=== PATIENT | female | born 1990 | race African-American/Black ===

== ENCOUNTER → 2017-07-13 | Outpatient (CLI) | payer MEDICAID ==
--- NOTE | 2017-07-13 16:42 | RADIOLOGY REPORT (SQ) ---
EXAM DESCRIPTION: CHEST PA/LATERAL COMPLETED DATE/TIME: 07/13/2017 4:33 pm REASON FOR STUDY: ACUTE UPPER RESPIRATORY INFECTION, UNSPECIFIED COMPARISON: None. EXAM PARAMETERS: NUMBER OF VIEWS: two views TECHNIQUE: Digital Frontal and Lateral radiographic views of the chest acquired. RADIATION DOSE: NA LIMITATIONS: none FINDINGS: LUNGS AND PLEURA: No opacities, masses or pneumothorax. No pleural effusion. MEDIASTINUM AND HILAR STRUCTURES: No masses or contour abnormalities. HEART AND VASCULAR STRUCTURES: Heart normal size. No evidence for failure. BONES: No acute findings. HARDWARE: None in the chest. OTHER: No other significant finding. IMPRESSION: NO SIGNIFICANT RADIOGRAPHIC FINDING IN THE CHEST. TECHNICAL DOCUMENTATION: JOB ID: [id number] [employer]- All Rights Reserved Reading location - IP/workstation name: [email or web address]
== END ==
LOC: OD 15:52
PROVIDERS: ATTEND Nurse Practitioner Acute Care
DX: J06.9 Acute upper respiratory infection, unspecified (principal)
CPT/HCPCS: 71046

== ENCOUNTER 2017-11-30 13:09 | Emergency (ER) | payer MEDICAID ==
--- NOTE | 2017-11-30 16:06 | ER Document Report ---
ED Medical Screen (RME) - General Chief Complaint: Vag Bleeding, +preg <12wks Stated Complaint: ABDOMINAL PAIN Time Seen by Provider: 11/30/17 15:50 Mode of Arrival: Ambulatory Information source: Patient TRAVEL OUTSIDE OF THE [place].S. IN LAST 30 DAYS: No - HPI Notes: 11/30/17 16:03 27-year-old female 2 para 1 6 week 3 day presents to the ED today for complaints of intermittent abdominal pain with vaginal bleeding for the last 2 weeks, states pain became progressively worse last night along with bleeding after sexual intercourse. Patient did have a positive test at home, with disc as confirmed that her doctor's office [facility]. Last menstrual period was 10/16/2017. Has not tried any thid-xus-bjuwqfy medications. Denies fevers, chills, chest pain,palpitations, shortness of breath, dyspnea, nausea , vomiting, diarrhea, speech changes, LH, dizziness, syncope, headaches, weakness, bowel or bladder dysfunction or saddle anesthesia suprapubic abd pain s1 s2 regular lungs cta I have greeted and performed a rapid initial assessment of this patient. A comprehensive ED assessment and evaluation of the patient, analysis of test results and completion of medical decision making process will be conducted by an additional ED providers - Related Data Allergies/Adverse Reactions: No Known Allergies Allergy (Verified 11/30/17 15:51) Physical Exam - Vital signs Vitals: Temp Pulse Resp BP Pulse Ox 98.5 F 81 20 116/66 99 11/30/17 14:04 11/30/17 14:04 11/30/17 14:04 11/30/17 14:04 11/30/17 14:04 Course - Vital Signs Vital signs: Temp Pulse Resp BP Pulse Ox 98.5 F 81 20 116/66 99 11/30/17 14:04 11/30/17 14:04 11/30/17 14:04 11/30/17 14:04 11/30/17 14:04
[2017-11-30 17:19] LABS: ABSOLUTE LYMPHOCYTES (AUTO) 1.9 10^3/uL (0.5-4.7); ABSOLUTE MONOCYTES (AUTO) 0.6 10^3/uL (0.1-1.4); ABSOLUTE NEUT (AUTO) 6.2 10^3/uL (1.7-8.2); BASOPHILS % (AUTO) 0.4 % (0-2); EOSINOPHILS % (AUTO) 0.6 % (0-6); HEMATOCRIT 37.8 % (36.0-47.0); HEMOGLOBIN 12.5 g/dL (12.0-15.5); LYMPHOCYTES % (AUTO) 21.7 % (13-45); MEAN CORPUSCULAR HGB CONC 32.9 g/dL (32.0-36.0); MEAN CORPUSCULAR VOLUME 82 fl (80-97); MONOCYTES % (AUTO) 6.3 % (3-13); PLATELET COUNT 296 10^3/uL (150-450); RED BLOOD COUNT 4.61 10^6/uL (3.72-5.28); RED CELL DISTRIBUTION WIDTH 13.8 % (11.5-14.0); TOTAL CELLS COUNTED % (AUTO) 100 %; WHITE BLOOD COUNT 8.7 10^3/uL (4.0-10.5)
[2017-11-30 17:23] LABS: APPEARANCE,URINE CLOUDY; BILIRUBIN,URINE NEGATIVE (NEGATIVE); GLUCOSE, URINE NEGATIVE (NEGATIVE); KETONES,URINE NEGATIVE (NEGATIVE); LEUKOCYTE ESTERASE,URINE LARGE (NEGATIVE); NITRITE,URINE NEGATIVE (NEGATIVE); PROTEIN,URINE 100 mg/dL (NEGATIVE); URINE SPECIFIC GRAVITY 1.031
[2017-11-30 17:24] LABS: COLOR,URINE YELLOW
[2017-11-30 17:33] LABS: ALANINE AMINOTRANSFERASE 22 U/L (9-52); ALBUMIN 4.5 g/dL (3.5-5.0); ALKALINE PHOSPHATASE 62 U/L (38-126); ANION GAP 11 (5-19); ASPARTATE AMINO TRANSFERASE 17 U/L (14-36); BILIRUBIN,DIRECT 0.2 mg/dL (0.0-0.4); BILIRUBIN,TOTAL 0.5 mg/dL (0.2-1.3); BLOOD UREA NITROGEN 12 mg/dL (7-20); CALCIUM 9.5 mg/dL (8.4-10.2); CARBON DIOXIDE 26 mmol/L (22-30); CHLORIDE 105 mmol/L (98-107); GLUCOSE 93 mg/dL (75-110); POTASSIUM 4.1 mmol/L (3.6-5.0); SODIUM 141.8 mmol/L (137-145); TOTAL PROTEIN 7.8 g/dL (6.3-8.2)
--- NOTE | 2017-11-30 18:07 | RADIOLOGY REPORT (SQ) ---
EXAM DESCRIPTION: U/S OB TRANSVAG W/DOPPLER COMPLETED DATE/TIME: 11/30/2017 5:42 pm REASON FOR STUDY: vaginal bleeding/cramping. 6 weeks preg COMPARISON: None. TECHNIQUE: Transvaginal static and realtime grayscale images acquired of the pelvis. Additional cathy cted spectral and color Doppler images recorded. All images stored on PACs. bHCG: Pending. CLINICAL DATES: 6 weeks 3 days LIMITATIONS: None. FINDINGS: Possible Gestational sac identified in the lower uterine segment. No yolk sac or po le identified at this time. ULTRASOUND EGA: 5 weeks 4 days ULTRASOUND KATIE: 07/29/2018 SUBCHORIONIC BLEED: No. SIZE OF BLEED: Not applicable. UTERUS: No masses. No anomalies. CERVICAL LENGTH: 3.5 cm Closed. RIGHT ADNEXA: Normal ovary with normal vascular flow. No adnexal free fluid. No adnexal masses. LEFT ADNEXA: Ovary not identified. No adnexal free fluid. No adnexal masses. FREE FLUID: None. OTHER: No other significant finding. IMPRESSION: Possible Gestational sac identified in the lower uterine segment. No yolk sac or p ole identified at this time. ULTRASOUND EGA: 5 weeks 4 days No adnexal masses or free fluid. Left ovary not identified. Trimester of : First - 0 to 13 weeks. TECHNICAL DOCUMENTATION: JOB ID: [id number] 2010 [employer]- All Rights Reserved Reading location - IP/workstation name: [employer]
--- NOTE | 2017-11-30 19:26 | ER Document Report ---
ED General - General Mode of Arrival: Ambulatory Information source: Patient TRAVEL OUTSIDE OF THE U.S. IN LAST 30 DAYS: No <MANDA HEATON - Last Filed: 12/01/17 04:07> <STEPHEN CEVALLOS - Last Filed: 12/01/17 04:09> - General Chief Complaint: Vag Bleeding, +preg <12wks Stated Complaint: ABDOMINAL PAIN Time Seen by Provider: 11/30/17 15:50 Notes: 27 y.o female presents to the ED with vaginal bleeding of onset 2 weeks ago which she describes as a spotting that is worsened after intercourse. She also reports that she has had some abd cramping since her onset of spotting and states that this is more cramping than she usually has during her periods because she usually does not has much cramping during her periods. She denies any fevers. She reports that she is and believes that she is 6 weeks and 3 days into her . Pt reports that this is her second , A0. ( MANDA HEATON) - Related Data Allergies/Adverse Reactions: No Known Allergies Allergy (Verified 11/30/17 15:51) Past Medical History - General Information source: Patient Last Menstrual Period: 10/16 - Social History Smoking Status: Never Smoker Chew tobacco use (# tins/day): No Frequency of alcohol use: None Drug Abuse: None Patient has suicidal ideation: No Patient has homicidal ideation: No Neurological Medical History: Reports: Hx Migraine Renal/ Medical History: Denies: Hx Peritoneal Dialysis <MANDA HEATON - Last Filed: 12/01/17 04:07> - Social History Family History: None <STEPHEN CEVALLOS - Last Filed: 12/01/17 04:09> Review of Systems - Review of Systems Constitutional: See HPI. denies: Fever EENT: No symptoms reported Cardiovascular: No symptoms reported Respiratory: No symptoms reported Gastrointestinal: See HPI, Abdominal pain - cramping Genitourinary: No symptoms reported Female Genitourinary: See HPI, , Vaginal bleeding Musculoskeletal: No symptoms reported Skin: No symptoms reported Hematologic/Lymphatic: No symptoms reported Neurological/Psychological: No symptoms reported -: Yes All other systems reviewed and negative <MANDA HEATON - Last Filed: 12/01/17 04:07> Physical Exam <MANDA HEATON - Last Filed: 12/01/17 04:07> <STEPHEN CEVALLOS - Last Filed: 12/01/17 04:09> - Vital signs Vitals: Temp Pulse Resp BP Pulse Ox 98.5 F 81 20 116/66 99 11/30/17 14:04 11/30/17 14:04 11/30/17 14:04 11/30/17 14:04 11/30/17 14:04 - Notes Notes: PHYSICAL EXAM GENERAL: Alert, interacts well. No acute distress. HEAD: Normocephalic, atraumatic. EYES: Pupils equal, round, and reactive to light. Extraocular movements intact. ENT: Oral mucosa moist, tongue midline. NECK: Full range of motion. Supple. Trachea midline. LUNGS: Clear to auscultation bilaterally, no wheezes, rales, or rhonchi. No respiratory distress. HEART: Regular rate and rhythm. No murmurs, gallops, or rubs. ABDOMEN: Soft, non-tender. Non-distended. Bowel sounds present in all 4 quadrants. No guarding, rebound, or rigidity. EXTREMITIES: Moves all 4 extremities spontaneously. No edema. No cyanosis. NEUROLOGICAL: Alert and oriented x3. Normal speech. PSYCH: Normal affect, normal mood. SKIN: Warm, dry, normal turgor. No rashes or lesions noted. (MANDA HEATON) Course - Laboratory Result Diagrams: 11/30/17 16:56 11/30/17 16:56 <MANDA HEATON - Last Filed: 12/01/17 04:07> - Laboratory Result Diagrams: 11/30/17 16:56 11/30/17 16:56 <STEPHEN CEVALLOS - Last Filed: 12/01/17 04:09> - Re-evaluation Re-evalutation: 11/30/17 19:33 CBC unremarkable, CMP unremarkable, quantitative beta-hCG is 590.59, she is B+ so RhoGam is not indicated, urinalysis shows large blood and large leukocyte esterase, 1 squamous epithelial cell, suspect this is contaminated from her vaginal bleeding, doubt true urinary tract infection however I will treat with Macrobid given her lower abdominal pain. Transvaginal ultrasound shows possible gestational sac at the lower uterine segment but no evidence of yolk sac or pole. Estimated gestational age is 5 weeks 4 days compared to clinical date based off of last menstrual period which is 6 weeks 3 days. I did discuss with the patient that based of these findings is quite likely that she is having a miscarriage. Patient will have to have her hCG rechecked in approximately 2 days. I have written her a prescription for a lab order. Her results will be called to her at the latest on Monday by Malinda Ruiz our culture nurse. 11/30/17 21:09 I forgot to include the prescription for Macrobid on her discharge instructions. I attempted to call the phone number left in the computer for this patient but she did not answer. I left a message asking her to call by back at [phone]. We do not have a pharmacy on record for her. I am awaiting a phone call back from her. 12/01/17 04:08 Patient did call me back, I called in a prescription for Macrobid to the pharmacy of her choice in [place]. This was [facility]. (STEPHEN CEVALLOS) - Vital Signs Vital signs: Temp Pulse Resp BP Pulse Ox 98.1 F 81 16 115/72 99 11/30/17 19:37 11/30/17 14:04 11/30/17 19:37 11/30/17 19:37 11/30/17 14:04 - Laboratory Laboratory results interpreted by me: 11/30/17 11/30/17 16:15 16:56 Beta HCG, Quant 590.59 H Urine Protein 100 H Urine Blood LARGE H Urine Urobilinogen 4.0 H Ur Leukocyte Esterase LARGE H Urine Ascorbic Acid 40 H Discharge <MANDA HEATON - Last Filed: 12/01/17 04:07> <STEPHEN CEVALLOS - Last Filed: 12/01/17 04:09> - Discharge Clinical Impression: Hemorrhage of in first trimester, Miscarriage, threatened, early UTI (urinary tract infection) Qualifiers: Urinary tract infection type: acute cystitis Hematuria presence: with hematuria Qualified Code(s): N30.01 - Acute cystitis with hematuria Condition: Stable Disposition: HOME, SELF-CARE Instructions: Threatened Miscarriage ([facility]) Additional Instructions: Please have your quantitative beta-hCG rechecked in 2 days. We will call you the results at latest on Monday. Return for fevers, foul-smelling vaginal discharge, lightheadedness or any new or concerning symptoms. Do not have sex or put anything in your vagina until your EQUIPMENT ANALYST says it is safe. Prescriptions: Nitrofurantoin/Nitrofuran Mac [Macrobid 100 mg Capsule] 1 tab PO BID #14 capsule Forms: Follow-Up Laboratory Testing Referrals: MARIA DOLORES GARCIA MD [Primary Care Provider] - Follow up as needed Scribe Attestation: 12/01/17 04:09 I personally performed the services described in the documentation, reviewed and edited the documentation which was dictated to the scribe in my presence, and it accurately records my words and actions. (STEPHEN CEVALLOS) Scribe Documentation - Scribe Written by Sulma:: Sulma Dejesus 11/30/171925 acting as scribe for :: Miley <MANDA HEATON - Last Filed: 12/01/17 04:07>
[2017-11-30 19:43] VITALS: BP 115/72
== END 2017-11-30 19:44 | disposition home or self-care (01) ==
LOC: ER 13:09
DX: O20.0 Threatened abortion (principal); O23.41 Unspecified infection of urinary tract in pregnancy, first trimester; Z3A.01 Less than 8 weeks gestation of pregnancy
CPT/HCPCS: 36415; 76817; 80053; 81001; 84702; 85025; 86900; 86901; 93976; 99284

== ENCOUNTER → 2017-12-03 | Outpatient (CLI) | payer MEDICAID | LOC: LAB 14:25 | PROVIDERS: ATTEND Emergency Medicine | DX: O20.9 Hemorrhage in early pregnancy, unspecified (principal); Z3A.00 Weeks of gestation of pregnancy not specified | CPT/HCPCS: 36415; 84702 ==

== ENCOUNTER → 2018-03-10 | Outpatient (CLI) | payer MEDICAID ==
[2018-03-10 12:55] LABS: ANION GAP 14 (5-19); BLOOD UREA NITROGEN 11 mg/dL (7-20); CALCIUM 9.6 mg/dL (8.4-10.2); CARBON DIOXIDE 27 mmol/L (22-30); CHLORIDE 101 mmol/L (98-107); GLUCOSE 82 mg/dL (75-110); POTASSIUM 4.6 mmol/L (3.6-5.0); SODIUM 141.5 mmol/L (137-145)
== END ==
LOC: OD 10:43
PROVIDERS: ATTEND Internal Medicine Cardiovascular Disease
DX: R00.2 Palpitations (principal); R07.9 Chest pain, unspecified; N91.2 Amenorrhea, unspecified
CPT/HCPCS: 36415; 80048; 84443; 84703

== ENCOUNTER 2018-09-10 08:16 | Emergency (ER) | payer OTHER, MEDICAID ==
--- NOTE | 2018-09-10 09:20 | ER Document Report ---
ED General - General Chief Complaint: Medical Clearance Stated Complaint: CONFIRMATION Time Seen by Provider: 09/10/18 09:09 Primary Care Provider: CELE PARKER MD [Primary Care Provider] - Follow up as needed Mode of Arrival: Ambulatory Information source: Patient Notes: Patient presents to the emergency patient presents to the emergency department with reports of positive test x2 with lower abdominal cramping and light spotting that started yesterday. She reports last menstrual period August 09, 2018. Reports 2 miscarriages. G3, P1. Complains of some some light cramping today reports she just went to the bathroom and she did not notice any bleeding now. Denies trauma. Denies all other symptoms such as fever vomiting diarrhea. Denies pain with void. denies vag discharge. TRAVEL OUTSIDE OF THE U.S. IN LAST 30 DAYS: No - HPI Onset: Yesterday Quality of pain: Cramping Severity: Mild Pain Level: 1 Associated symptoms: None Exacerbated by: Denies Relieved by: Denies Similar symptoms previously: Yes Recently seen / treated by doctor: No - Related Data Allergies/Adverse Reactions: No Known Allergies Allergy (Verified 11/30/17 15:51) Past Medical History - General Information source: Patient - Social History Smoking Status: Unknown if Ever Smoked Cigarette use (# per day): No Frequency of alcohol use: None Drug Abuse: None Occupation: pre algebra teacher Lives with: Family Family History: None Patient has suicidal ideation: No Patient has homicidal ideation: No Neurological Medical History: Reports: Hx Migraine Renal/ Medical History: Denies: Hx Peritoneal Dialysis Review of Systems - Review of Systems Notes: Review HPI for review of systems., All other systems negative Physical Exam - Vital signs Vitals: Temp Pulse Resp BP Pulse Ox 97.3 F 90 16 111/68 100 09/10/18 08:22 09/10/18 08:22 09/10/18 08:22 09/10/18 08:22 09/10/18 08:22 - Notes Notes: PHYSICAL EXAMINATION: GENERAL: Well-appearing and in no acute distress HEAD: Atraumatic, normocephalic. EYES: Pupils equal round extraocular movements intact, sclera anicteric, conjunctiva are normal. ENT: nares patent, b. Moist mucous membranes. NECK: Normal range of motion, supple without lymphadenopathy LUNGS: CTAB and equal. No wheezes rales or rhonchi. HEART: Regular rate and rhythm without murmurs ABDOMEN: Soft, some generalized tenderness to palpation. No guarding, no rebound EXTREMITIES: Normal range of motion, NEUROLOGICAL: Cranial nerves grossly intact. Normal sensory/motor exams. PSYCH: Normal mood, normal affect. SKIN: Warm, Dry, normal turgor, Course - Re-evaluation Re-evalutation: 09/10/18 11:10 Patient waiting in room 31. Chemistry still pending ultrasound report still pending. 09/10/18 12:22 Patient instructed on ultrasound and hCG level. Instructed on the importance of follow-up Monday for recheck of hCG. She was also instructed on the need for repeat ultrasound. She verbalized understanding to all instructions. - Vital Signs Vital signs: Temp Pulse Resp BP Pulse Ox 97.7 F 80 18 108/74 100 09/10/18 11:51 09/10/18 11:51 09/10/18 11:51 09/10/18 11:51 09/10/18 11:51 - Laboratory Result Diagrams: 09/10/18 09:20 09/10/18 09:20 Laboratory results interpreted by me: 09/10/18 09/10/18 09/10/18 09:20 09:20 09:20 Hgb 11.5 L Hct 35.2 L Beta HCG, Quant 722.37 H Urine Blood MODERATE H Ur Leukocyte Esterase MODERATE H - Diagnostic Test Radiology reviewed: Image reviewed, Reports reviewed - no iup visualized at this time EXAM DESCRIPTION: U/S [id number] TRNABD 1GES W/ODOP COMPLETED DATE/TIME: 09/10/2018 11:00 am REASON FOR STUDY: preg, spotting COMPARISON: None. TECHNIQUE: Transabdominal static and realtime grayscale images acquired of the pelvis. Additional selected spectral and color Doppler images recorded. All images stored on PACs. [facility]: Not available. CLINICAL DATES: LMP 08/09/2018. 4 weeks 4 days. LIMITATIONS: None. FINDINGS: No intrauterine gestation is present. The endometrium measures 18 mm. UTERUS: No masses or anomalies. 9.7 x 5 x 4.4 cm. CERVICAL LENGTH: 2.1 cm. Closed. RIGHT ADNEXA: Normal ovary with normal vascular flow. 3.2 x 2.2 x 1.8 cm. No adnexal free fluid. No adnexal masses. LEFT ADNEXA: Normal ovary with normal vascular flow. 3.7 x 3.2 x 3.1 cm. There is a 2.8 x 2.9 x 2.5 cm cyst. No adnexal free fluid. No adnexal masses. FREE FLUID: None. OTHER: No other significant finding. IMPRESSION: No intrauterine gestation is identified at this time. The endometrium is prominent. There is a left ovarian cyst. Follow-up as clinically indicated. Discharge - Discharge Clinical Impression: Vaginal bleeding Qualifiers: Weeks of gestation: less than 8 weeks Qualified Code(s): Z3A.01 - Less than 8 weeks gestation of Condition: Stable Disposition: HOME, SELF-CARE Instructions: Bleeding During Early ([facility]), Ob-Activity Aide Doctors, ([facility]) Additional Instructions: *You have been evaluated for vaginal bleeding, *A was not visualized on this ultrasound. Please follow-up in 72 hours for a repeat hCG. You may contact the [facility] nurse at [phone] for results between the hours of 8-4 Monday through Monday. (your hcg level today is 722.37) *Follow up with your TILE CONDUIT LAYER or the health department for evaluation and care *Return to ED for worsening condition, changes, needs Forms: Follow-Up Laboratory Testing, Parent Work Note, Return to Work Referrals: CELE PARKER MD [Primary Care Provider] - Follow up as needed
[2018-09-10 09:31] LABS: ABSOLUTE MONOCYTES (AUTO) 0.5 10^3/uL (0.1-1.4); BASOPHILS % (AUTO) 0.4 % (0-2); EOSINOPHILS % (AUTO) 0.3 % (0-6); HEMATOCRIT 35.2 % (36.0-47.0); HEMOGLOBIN 11.5 g/dL (12.0-15.5); LYMPHOCYTES % (AUTO) 23.1 % (13-45); MEAN CORPUSCULAR HGB CONC 32.7 g/dL (32.0-36.0); MEAN CORPUSCULAR VOLUME 82 fl (80-97); MONOCYTES % (AUTO) 5.7 % (3-13); PLATELET COUNT 250 10^3/uL (150-450); RED BLOOD COUNT 4.27 10^6/uL (3.72-5.28); RED CELL DISTRIBUTION WIDTH 13.4 % (11.5-14.0); SEGMENTED NEUTROPHILS % (AUTO) 70.5 % (42-78); TOTAL CELLS COUNTED % (AUTO) 100 %; WHITE BLOOD COUNT 8.5 10^3/uL (4.0-10.5)
[2018-09-10 09:36] LABS: APPEARANCE,URINE CLEAR; BILIRUBIN,URINE NEGATIVE (NEGATIVE); COLOR,URINE YELLOW; GLUCOSE, URINE NEGATIVE (NEGATIVE); KETONES,URINE NEGATIVE (NEGATIVE); LEUKOCYTE ESTERASE,URINE MODERATE (NEGATIVE); NITRITE,URINE NEGATIVE (NEGATIVE); PROTEIN,URINE NEGATIVE (NEGATIVE); URINE SPECIFIC GRAVITY 1.015; UROBILINOGEN,URINE NEGATIVE mg/dL (<2.0)
[2018-09-10 11:08] LABS: ALANINE AMINOTRANSFERASE 20 U/L (9-52); ALBUMIN 3.9 g/dL (3.5-5.0); ALKALINE PHOSPHATASE 59 U/L (38-126); ANION GAP 9 (5-19); ASPARTATE AMINO TRANSFERASE 19 U/L (14-36); BILIRUBIN,DIRECT 0.3 mg/dL (0.0-0.4); BILIRUBIN,TOTAL 0.5 mg/dL (0.2-1.3); BLOOD UREA NITROGEN 11 mg/dL (7-20); CALCIUM 9.2 mg/dL (8.4-10.2); CARBON DIOXIDE 27 mmol/L (22-30); CHLORIDE 103 mmol/L (98-107); GLUCOSE 96 mg/dL (75-110); POTASSIUM 3.8 mmol/L (3.6-5.0); SODIUM 138.9 mmol/L (137-145); TOTAL PROTEIN 7.1 g/dL (6.3-8.2)
--- NOTE | 2018-09-10 11:13 | RADIOLOGY REPORT (SQ) ---
EXAM DESCRIPTION: U/S [id number] TRNABD 1GES W/ODOP COMPLETED DATE/TIME: 09/10/2018 11:00 am REASON FOR STUDY: preg, spotting COMPARISON: None. TECHNIQUE: Transabdominal static and realtime grayscale images acquired of the pelvis. Additional se lected spectral and color Doppler images recorded. All images stored on PACs. bHCG: Not available. CLINICAL DATES: LMP 08/09/2018. 4 weeks 4 days. LIMITATIONS: None. FINDINGS: No intrauterine gestation is present. The endometrium measures 18 mm. UTERUS: No masses or anomalies. 9.7 x 5 x 4.4 cm. CERVICAL LENGTH: 2.1 cm. Closed. RIGHT ADNEXA: Normal ovary with normal vascular flow. 3.2 x 2.2 x 1.8 cm. No adnexal free fluid. No adnexal masses. LEFT ADNEXA: Normal ovary with normal vascular flow. 3.7 x 3.2 x 3.1 cm. There is a 2.8 x 2.9 x 2.5 cm cyst. No adnexal free fluid. No adnexal masses. FREE FLUID: None. OTHER: No other significant finding. IMPRESSION: No intrauterine gestation is identified at this time. The endometrium is prominent. Th ere is a left ovarian cyst. Follow-up as clinically indicated. TECHNICAL DOCUMENTATION: JOB ID: [id number] [employer]- All Rights Reserved rev Reading location - IP/workstation name: [email or web address]
[2018-09-10 11:56] VITALS: BP 108/74
== END 2018-09-10 11:55 | disposition home or self-care (01) ==
LOC: ER 08:16
DX: O46.91 Antepartum hemorrhage, unspecified, first trimester (principal); O26.891 Other specified pregnancy related conditions, first trimester; R10.30 Lower abdominal pain, unspecified; R10.2 Pelvic and perineal pain; Z3A.01 Less than 8 weeks gestation of pregnancy
CPT/HCPCS: 36415; 76801; 80053; 81001; 84702; 85025; 86900; 86901; 99284

== ENCOUNTER → 2018-09-12 | Outpatient (CLI) | payer OTHER, MEDICAID | LOC: OD 16:04 | PROVIDERS: ATTEND Nurse Practitioner Family | DX: O26.859 Spotting complicating pregnancy, unspecified trimester (principal); Z3A.00 Weeks of gestation of pregnancy not specified | CPT/HCPCS: 36415; 84702 ==

== ENCOUNTER 2018-11-15 04:38 | Emergency (ER) | payer OTHER, MEDICAID ==
[2018-11-15] MEDS ORDERED: NORMAL SALINE 1000 ML 1,000 ML IV ONE (05:15)
[2018-11-15] MEDS ORDERED: METOCLOPRAMIDE HCL INJ/PF 10 MG/2 ML SDV IV ONE (05:16)
--- NOTE | 2018-11-15 05:18 | ER Document Report ---
ED Medical Screen (RME) - General Chief Complaint: Abdominal Pain Stated Complaint: STOMACH PAIN Time Seen by Provider: 11/15/18 05:10 Primary Care Provider: AMPARO PAULINO NP [Primary Care Provider] - Follow up as needed Notes: 28-year-old female, at 14 weeks gestation by first trimester ultrasound at 10 weeks, chief complaint of abdominal discomfort and nausea. Reports nausea throughout her , however abdominal discomfort began over the past day. Reports some mild constipation with previous bowel movements, denies diarrhea, denies vomiting, denies fever. She states she thinks she got food poisoning. TRAVEL OUTSIDE OF THE [place].S. IN LAST 30 DAYS: No - Related Data Allergies/Adverse Reactions: No Known Allergies Allergy (Verified 11/30/17 15:51) Past Medical History Neurological Medical History: Reports: Hx Migraine Renal/ Medical History: Denies: Hx Peritoneal Dialysis Physical Exam - Vital signs Vitals: Temp Pulse Resp BP Pulse Ox 98 F 91 20 137/68 H 99 11/15/18 04:41 11/15/18 04:41 11/15/18 04:41 11/15/18 04:41 11/15/18 04:41 - Abdominal Tenderness: Other - Moderately distended abdomen but no rigidity, rebound tenderness, or noted guarding. Minimal diffuse tenderness. Course - Re-evaluation Re-evalutation: I have greeted and performed a rapid initial assessment of this patient. A comprehensive ED assessment and evaluation of the patient, analysis of test results and completion of the medical decision making process will be conducted by additional ED providers. - Vital Signs Vital signs: Temp Pulse Resp BP Pulse Ox 98 F 91 20 137/68 H 99 11/15/18 04:41 11/15/18 04:41 11/15/18 04:41 11/15/18 04:41 11/15/18 04:41 Doctor's Discharge - Discharge Referrals: AMPARO PAULINO NP [Primary Care Provider] - Follow up as needed
[2018-11-15 05:59] LABS: AMORPHOUS SEDIMENT,URINE TRACE /HPF; APPEARANCE,URINE SLIGHTLY-CLOUDY; BILIRUBIN,URINE NEGATIVE (NEGATIVE); COLOR,URINE YELLOW; GLUCOSE, URINE NEGATIVE (NEGATIVE); KETONES,URINE NEGATIVE (NEGATIVE); LEUKOCYTE ESTERASE,URINE LARGE (NEGATIVE); NITRITE,URINE NEGATIVE (NEGATIVE); PROTEIN,URINE NEGATIVE (NEGATIVE); URINE SPECIFIC GRAVITY 1.017
[2018-11-15 06:00] LABS: ABSOLUTE EOSINOPHILS # (AUTO) 0.1 10^3/uL (0.0-0.6); ABSOLUTE LYMPHOCYTES (AUTO) 2.3 10^3/uL (0.5-4.7); ABSOLUTE MONOCYTES (AUTO) 0.4 10^3/uL (0.1-1.4); ABSOLUTE NEUT (AUTO) 7.6 10^3/uL (1.7-8.2); BASOPHILS % (AUTO) 0.2 % (0-2); EOSINOPHILS % (AUTO) 0.6 % (0-6); HEMATOCRIT 37.6 % (36.0-47.0); HEMOGLOBIN 12.7 g/dL (12.0-15.5); LYMPHOCYTES % (AUTO) 21.7 % (13-45); MEAN CORPUSCULAR HEMOGLOBIN 27.7 pg (27.0-33.4); MEAN CORPUSCULAR HGB CONC 33.7 g/dL (32.0-36.0); MEAN CORPUSCULAR VOLUME 82 fl (80-97); MONOCYTES % (AUTO) 4.2 % (3-13); PLATELET COUNT 234 10^3/uL (150-450); RED BLOOD COUNT 4.58 10^6/uL (3.72-5.28); RED CELL DISTRIBUTION WIDTH 12.9 % (11.5-14.0); SEGMENTED NEUTROPHILS % (AUTO) 73.3 % (42-78); TOTAL CELLS COUNTED % (AUTO) 100 %; WHITE BLOOD COUNT 10.4 10^3/uL (4.0-10.5)
--- NOTE | 2018-11-15 06:22 | ER Document Report ---
ED General - General Chief Complaint: Abdominal Pain Stated Complaint: STOMACH PAIN Time Seen by Provider: 11/15/18 05:10 Primary Care Provider: AMPARO PAULINO NP [NURSE PRACTITIONER] - Follow up as needed TRAVEL OUTSIDE OF THE [place] IN LAST 30 DAYS: No - HPI Notes: Patient is a 28-year-old female who presents to the emergency department for evaluation of abdominal pain and nausea. She is a G3, P1 at approximately 14 weeks gestation. She states she is had nausea and abdominal pain throughout basically the entire , but it worsened last night. She denies any feve rs or chills. She is had nausea but no emesis. She denies any urinary symptoms of any sort. She states her last bowel movement was yesterday morning. She believes she may be slightly constipated. No diarrhea, no melena, no hematochezia. She is establishing care with a new public relations assistant, has not yet seen them. She denies any vaginal bleeding or discharge. - Related Data Allergies/Adverse Reactions: No Known Allergies Allergy (Verified 11/30/17 15:51) Home Medications: vitamin Past Medical History - Social History Smoking Status: Never Smoker Chew tobacco use (# tins/day): No Frequency of alcohol use: None Drug Abuse: None Family History: None Patient has suicidal ideation: No Patient has homicidal ideation: No Neurological Medical History: Reports: Hx Migraine Renal/ Medical History: Denies: Hx Peritoneal Dialysis Review of Systems - Review of Systems Constitutional: No symptoms reported EENT: No symptoms reported Cardiovascular: No symptoms reported Respiratory: No symptoms reported Gastrointestinal: See HPI Genitourinary: No symptoms reported Female Genitourinary: Musculoskeletal: No symptoms reported Skin: No symptoms reported Neurological/Psychological: No symptoms reported Physical Exam - Vital signs Vitals: Temp Pulse Resp BP Pulse Ox 98 F 91 20 137/68 H 99 11/15/18 04:41 11/15/18 04:41 11/15/18 04:41 11/15/18 04:41 11/15/18 04:41 - Notes Notes: Vital signs reviewed, please refer to chart. Head is normocephalic, atraumatic. Pupils equal round, reactive to light. Neck is supple without meningismus. Heart is regular rate and rhythm. Lungs are clear to auscultation bilaterally. Abdomen is soft, nontender, normoactive bowel sounds throughout. Extremities without cyanosis, clubbing. Posterior calves are nontender. Peripheral pulses are equal. Skin is warm and dry. Patient is awake, alert, neurological exam is nonfocal. Course - Re-evaluation Re-evalutation: 11/15/18 06:54 Patient presents emergency department for evaluation. She had initial laboratory investigations as placed through triage. Her CBC was unremarkable. Metabolic panel was ordered, but I do not see any utility in this laboratory i nvestigation at this time. She is nauseated but not vomiting. She is got normal oral intake. I do not have any strong suspicion for focal liver or renal findings. Her urine did show some leukocyte esterase, was contaminated by squamous epithelial cells. I did go ahead and send it for culture. Patient has had this pain for some time but it does seem worse yesterday. She was primarily concerned about the possibility of Listeria. We did discuss this infection at length, and I was not concerned about the possibility of Listeria infection at this time. I strongly encouraged her to follow-up with her OB, and she plans to do so next week. She is to otherwise rest and stay hydrated, return to the ED with worsening or new concerning symptoms of any sort. 11/15/18 06:57 heart tones were obtained, found to be in the 140s. - Vital Signs Vital signs: Temp Pulse Resp BP Pulse Ox 98 F 91 20 137/68 H 99 11/15/18 04:41 11/15/18 04:41 11/15/18 04:41 11/15/18 04:41 11/15/18 04:41 - Laboratory Result Diagrams: 11/15/18 05:43 11/15/18 05:43 Laboratory results interpreted by me: 11/15/18 05:00 Urine Urobilinogen 4.0 H Ur Leukocyte Esterase LARGE H Urine Ascorbic Acid 20 H Discharge - Discharge Clinical Impression: Generalized abdominal pain during , Nausea Condition: Stable Disposition: HOME, SELF-CARE Instructions: Abdominal Pain ([facility]) Additional Instructions: Rest, stay well-hydrated with small, frequent sips of fluids. Your urine is being sent for culture. If any bacteria grow, you will be contacted. Follow-up with your OB next week. If you develop vaginal bleeding, or worsening or new concerning symptoms of any sort, return to the emergency department for evaluation. Referrals: PAULINO,AMPARO, BIOINFORMATICS TECHNICIAN [NURSE PRACTITIONER] - Follow up as needed
[2018-11-15 07:15] VITALS: BP 110/69
== END 2018-11-15 07:15 | disposition home or self-care (01) ==
LOC: ER 04:38
DX: O26.892 Other specified pregnancy related conditions, second trimester (principal); R10.9 Unspecified abdominal pain; R11.0 Nausea; Z3A.14 14 weeks gestation of pregnancy
CPT/HCPCS: 99284; 96361; 96374; 36415; 87086; 85025; 81001; J2765; J7030

== ENCOUNTER 2019-05-24 09:13 | Emergency (ER) | payer OTHER, MEDICAID ==
--- NOTE | 2019-05-24 09:55 | ER Document Report ---
ED Medical Screen (RME) - General Chief Complaint: Post Problem Stated Complaint: POST ISSUE Time Seen by Provider: 05/24/19 09:43 TRAVEL OUTSIDE OF THE [place] IN LAST 30 DAYS: No - HPI Notes: 05/24/19 09:54 29-year-old female to the emergency department with complaints of chest pain, palpitations, lower abdominal pain. She states that she just delivered her second child 6 days ago. She started experience the chest pain in the hospital and states that "they checked me out" but she was discharged anyways. She states that she is continues to have pain and it seems to be getting a little bit worse. She denies feeling short of breath but she states that her breathing is not quite right. She denies any leg swelling. She denies any nausea vomiting. She denies any fevers. She also admits to lower abdominal cramping. She states that she is not been bleeding any more than normal after having a baby. She does state that her epidural did not work so she had to deliver naturally and she was yelling and bearing down quite a bit. I performed a brief medical screening exam on the patient determined that she will need further evaluation and management by main side provider. I have ordered initial labs and imaging to help expedite her care. - Related Data Allergies/Adverse Reactions: No Known Allergies Allergy (Verified 05/24/19 09:43) Past Medical History - Social History Frequency of alcohol use: None Drug Abuse: None Neurological Medical History: Reports: Hx Migraine Renal/ Medical History: Denies: Hx Peritoneal Dialysis Physical Exam - Vital signs Vitals: Temp Pulse Resp BP Pulse Ox 98.1 F 79 16 121/80 100 05/24/19 09:28 05/24/19 09:28 05/24/19 09:28 05/24/19 09:28 05/24/19 09:28 Course - Vital Signs Vital signs: Temp Pulse Resp BP Pulse Ox 98.1 F 79 16 121/80 100 05/24/19 09:28 05/24/19 09:28 05/24/19 09:28 05/24/19 09:28 05/24/19 09:28
[2019-05-24 10:20] LABS: ABSOLUTE LYMPHOCYTES (AUTO) 1.1 10^3/uL (0.5-4.7); ABSOLUTE MONOCYTES (AUTO) 0.4 10^3/uL (0.1-1.4); ABSOLUTE NEUT (AUTO) 7.4 10^3/uL (1.7-8.2); BASOPHILS % (AUTO) 0.5 % (0-2); EOSINOPHILS % (AUTO) 0.4 % (0-6); HEMATOCRIT 33.6 % (36.0-47.0); HEMOGLOBIN 11.4 g/dL (12.0-15.5); LYMPHOCYTES % (AUTO) 12.4 % (13-45); MEAN CORPUSCULAR HEMOGLOBIN 28.5 pg (27.0-33.4); MEAN CORPUSCULAR HGB CONC 34.1 g/dL (32.0-36.0); MEAN CORPUSCULAR VOLUME 84 fl (80-97); MONOCYTES % (AUTO) 4.9 % (3-13); PLATELET COUNT 276 10^3/uL (150-450); RED BLOOD COUNT 4.02 10^6/uL (3.72-5.28); RED CELL DISTRIBUTION WIDTH 14.4 % (11.5-14.0); SEGMENTED NEUTROPHILS % (AUTO) 81.8 % (42-78); TOTAL CELLS COUNTED % (AUTO) 100 %; WHITE BLOOD COUNT 9.1 10^3/uL (4.0-10.5)
[2019-05-24 10:31] LABS: APPEARANCE,URINE SLIGHTLY-CLOUDY; BILIRUBIN,URINE NEGATIVE (NEGATIVE); COLOR,URINE PINK; GLUCOSE, URINE NEGATIVE (NEGATIVE); KETONES,URINE NEGATIVE (NEGATIVE); LEUKOCYTE ESTERASE,URINE LARGE (NEGATIVE); NITRITE,URINE NEGATIVE (NEGATIVE); PROTEIN,URINE 100 mg/dL (NEGATIVE); URINE SPECIFIC GRAVITY 1.009
--- NOTE | 2019-05-24 10:44 | RADIOLOGY REPORT (SQ) ---
EXAM DESCRIPTION: CHEST 2 VIEWS COMPLETED DATE/TIME: 05/24/2019 10:35 am REASON FOR STUDY: chest pain COMPARISON: None. EXAM PARAMETERS: NUMBER OF VIEWS: Two views. TECHNIQUE: PA and lateral views of the chest were obtained.. RADIATION DOSE: NA LIMITATIONS: none FINDINGS: LUNGS AND PLEURA: No consolidation, pleural effusion or pneumothorax. MEDIASTINUM AND HILAR STRUCTURES: No mediastinal or hilar contour abnormality. HEART AND VASCULAR STRUCTURES: The cardiac silhouette and pulmonary vasculature are within normal lara its. BONES: No acute findings. HARDWARE: None in the chest. OTHER: No other finding. IMPRESSION: No acute cardiopulmonary process. TECHNICAL DOCUMENTATION: JOB ID: [id number] [employer]- All Rights Reserved Reading location - IP/workstation name: [email or web address]
[2019-05-24 10:47] LABS: ALBUMIN 3.7 g/dL (3.5-5.0); ALKALINE PHOSPHATASE 132 U/L (38-126); ANION GAP 7 (5-19); ASPARTATE AMINO TRANSFERASE 20 U/L (14-36); BILIRUBIN,DIRECT 0.3 mg/dL (0.0-0.4); BILIRUBIN,TOTAL 0.7 mg/dL (0.2-1.3); BLOOD UREA NITROGEN 11 mg/dL (7-20); CALCIUM 9.1 mg/dL (8.4-10.2); CARBON DIOXIDE 28 mmol/L (22-30); CHLORIDE 105 mmol/L (98-107); GLUCOSE 73 mg/dL (75-110); POTASSIUM 4.2 mmol/L (3.6-5.0); TOTAL PROTEIN 6.7 g/dL (6.3-8.2)
--- NOTE | 2019-05-24 12:55 | EKG REPORT ---
SEVERITY:- OTHERWISE NORMAL ECG - SINUS ARRHYTHMIA, RATE 61-90 : Confirmed by: Myles Snyder 24-May-2019 12:54:36
--- NOTE | 2019-05-24 13:59 | ER Document Report ---
ED GI/ - General Chief Complaint: Post Problem Stated Complaint: POST ISSUE Time Seen by Provider: 05/24/19 09:43 Primary Care Provider: [facility] [Provider Group] - Follow up in 1 week Notes: Patient is a 29-year-old female who presents emergency department with a chief complaint of chest pain, palpitations, and lower abdominal pain. Patient also states that she has a headache. Patient delivered her baby 6 days ago. Patient states that she has been taking ibuprofen and Tylenol for pain relief, but has not had any relief of her symptoms. States that she does not like taking ibu profen because it makes her "feel funny." Patient states that she had an epidural. TRAVEL OUTSIDE OF THE [place] IN LAST 30 DAYS: No - Related Data Allergies/Adverse Reactions: No Known Allergies Allergy (Verified 05/24/19 09:43) Past Medical History - Social History Smoking Status: Never Smoker Frequency of alcohol use: None Drug Abuse: None Family History: None Patient has suicidal ideation: No Patient has homicidal ideation: No Neurological Medical History: Reports: Hx Migraine Renal/ Medical History: Denies: Hx Peritoneal Dialysis Review of Systems - Review of Systems Notes: REVIEW OF SYSTEMS: CONSTITUTIONAL : Denies recent illness. Denies recent unintentional weight loss. Denies fever, chills, or sweats. EENT: Denies eye, ear, throat, or mouth pain, discharge, or symptoms. Denies nasal or sinus congestion. CARDIOVASCULAR: Denies chest pain. RESPIRATORY: Denies shortness of breath, cough, congestion, difficulty breathing, or wheezing. GASTROINTESTINAL: Denies nausea, vomiting, and diarrhea. Denies abdominal pain. Denies constipation. Last BM: GENITOURINARY: Denies difficulty urinating, burning, blood in urine, urgency or frequency. FEMALE GENITOURINARY: See HPI. MUSCULOSKELETAL: Denies neck and back pain. Denies joint pain or swelling. SKIN: Denies rash, itchiness, or lesions HEMATOLOGIC : Denies easy bruising or bleeding. LYMPHATIC: Denies swollen, painful, enlarged glands. NEUROLOGICAL: Denies no numbness or tingling denies weakness. Denies altered mental status. Denies alteration in speech. See HPI. PSYCHIATRIC: Denies stress, anxiety, alteration in sleep patterns, or depression. All other systems reviewed and negative. Physical Exam - Vital signs Vitals: Temp Pulse Resp BP Pulse Ox 98.1 F 79 16 121/80 100 05/24/19 09:28 05/24/19 09:28 05/24/19 09:28 05/24/19 09:28 05/24/19 09:28 - Notes Notes: PHYSICAL EXAMINATION: GENERAL: Appears well, healthy, well-nourished, no acute distress. HEAD: Normocephalic, atraumatic. EYES: PERRL, conjunctiva normal, all extraocular movements intact, sclera nonicteric ENT: Moist mucous membranes. NECK: Supple, no noticeable swelling, redness, rash. Normal range of motion. LUNGS: Equal breath sounds bilaterally and clear to auscultation. No wheezes rales or rhonchi. CARDIOVASCULAR: S1-S2, regular rate, regular rhythm. Radial pulses 2+, normal. ABDOMEN: Normoactive bowel sounds. Soft, nontender, no guarding, no rebound tenderness, and no masses palpated. EXTREMITIES: Normal strength and range of motion, no pitting or edema. No cyanosis. NEUROLOGICAL: Moves all extremities upon command. Strength 5/5 in all extremities. PSYCH: Normal mood, normal affect. SKIN: Warm, dry. No rash, lesions, ulcerations noted. Normal skin turgor. Course - Re-evaluation Re-evalutation: 05/24/19 This patient's hematology shows anemia with a hemoglobin of 11.4 and hematocrit of 32.6. There is not a significant change as compared to her previous visit in October 2018 with hemoglobin of 12.7. Chemistries show glucose of 73. Patient was fed. TSH ordered in triage was normal. Urinalysis shows a large amount of leukocytes and a large amount of blood. Patient will be treated for a urinary tract infection. I spoke to Dr. martinez, who recommended a head CT, which was normal. According to Dr. martinez, she is not within the window to have an epidural patch done. She was also be treated with a migraine cocktail. Blood pressure is normal, ruling out eclampsia. Patient will follow-up with her TRIAL MANAGEMENT ASSOCIATE. Follow-up precautions were given. Verbal discharge instructions were given to the patient. They verbalized understanding. They are stable for discharge. - Vital Signs Vital signs: Temp Pulse Resp BP Pulse Ox 97.9 F 69 16 122/76 100 05/24/19 16:52 05/24/19 16:52 05/24/19 09:28 05/24/19 16:52 05/24/19 16:52 - Laboratory Result Diagrams: 05/24/19 10:05 05/24/19 10:05 Laboratory results interpreted by me: 05/24/19 05/24/19 05/24/19 09:50 10:05 10:05 Hgb 11.4 L Hct 33.6 L RDW 14.4 H Lymph % (Auto) 12.4 L Seg Neutrophils % 81.8 H Creatinine 0.46 L Glucose 73 L Alkaline Phosphatase 132 H Urine Protein 100 H Urine Blood LARGE H Urine Urobilinogen 4.0 H Ur Leukocyte Esterase LARGE H Discharge - Discharge Clinical Impression: pain Headache Qualifiers: Headache type: unspecified Headache chronicity pattern: acute headache Intractability: not intractable Qualified Code(s): R51 - Headache Urinary tract infection Qualifiers: Urinary tract infection type: acute cystitis Hematuria presence: without hematuria Qualified Code(s): N30.00 - Acute cystitis without hematuria Condition: Stable Disposition: HOME, SELF-CARE Instructions: Urinary Tract Infection ([facility]) Additional Instructions: Your urine shows findings consistent with a urinary tract infection. Please take all the antibiotics as directed even if your symptoms have improved. Please follow-up with your primary care physician as needed. Return to emergency room if you develop fever >101F, persistent vomiting, become lethargic, have severe pain in your sides, or any other symptoms that are concerning to you. You are also seen today for a headache. You are being started on Vistaril, med ication for anxiety. Please make sure you get plenty of rest, as this is important . Please follow-up with your TRIAL MANAGEMENT ASSOCIATE in regards to this visit. Prescriptions: Acetaminophen with Codeine [Tylenol #3 Tablet] 1 each PO Q6HP PRN #30 tablet PRN Reason: Cephalexin [Keflex] 500 mg PO BID #14 capsule Hydroxyzine Pamoate [Vistaril 25 mg Capsule] 25 mg PO DAILY #30 capsule Referrals: [facility] [Provider Group] - Follow up in 1 week
[2019-05-24] MEDS ORDERED: NORMAL SALINE 1000 ML 1,000 ML IV ONE (14:04)
[2019-05-24] MEDS ORDERED: ACETAMINOPHEN 325 MG TABLET PO ONE (14:05)
[2019-05-24] MEDS ORDERED: CEFTRIAXONE 1 GM/D5W RTU 1 GM/50 ML RTUPB IV ONE (14:30)
--- NOTE | 2019-05-24 14:59 | RADIOLOGY REPORT (SQ) ---
EXAM DESCRIPTION: CT HEAD WITHOUT COMPLETED DATE/TIME: 05/24/2019 2:46 pm REASON FOR STUDY: headache; post epidural COMPARISON: None. TECHNIQUE: Axial images acquired through the brain without intravenous contrast. Images reviewed wi th bone, brain and subdural windows. Additional sagittal and coronal reconstructions were generated. Images stored on PACS. All CT scanners at this facility use dose modulation, iterative reconstruction, and/or weight based d osing when appropriate to reduce radiation dose to as low as reasonably achievable (ALARA). [facility]: Dose Right [facility]: CareDose [facility]: Dose Right [facility]: Teradose 4D [facility]: Smart [employer] RADIATION DOSE: CT Rad equipment meets quality standard of care and radiation dose reduction techniq ues were employed. CTDIvol: 53.2 mGy. DLP: 937 mGy-cm. mGy. LIMITATIONS: None. FINDINGS: VENTRICLES: Normal size and contour. CEREBRUM: No masses. No hemorrhage. No midline shift. No evidence for acute infarction. Normal gra y/white matter differentiation. No areas of low density in the white matter. CEREBELLUM: No masses. No hemorrhage. No alteration of density. No evidence for acute infarction. EXTRAAXIAL SPACES: No fluid collections. No masses. ORBITS AND GLOBE: No intra- or extraconal masses. Normal contour of globe without masses. CALVARIUM: No fracture. PARANASAL SINUSES: No fluid or mucosal thickening. SOFT TISSUES: No mass or hematoma. OTHER: No other significant finding. IMPRESSION: NORMAL BRAIN CT WITHOUT CONTRAST. EVIDENCE OF ACUTE STROKE: NO. COMMENT: Quality ID # [id number]: Final reports with documentation of one or more dose reduction techniques (e.g., Automated exposure control, adjustment of the mA and/or kV according to patient size, use of iterative reconstruction technique) TECHNICAL DOCUMENTATION: JOB ID: [id number] [employer]- All Rights Reserved Reading location - IP/workstation name: [email or web address]
[2019-05-24] MEDS ORDERED: METOCLOPRAMIDE HCL INJ/PF 10 MG/2 ML SDV IV ONE (15:59)
[2019-05-24] MEDS ORDERED: DIPHENHYDRAMINE HCL 50 MG/ML VIAL IV ONE (15:59)
[2019-05-24 16:59] VITALS: BP 122/76
== END 2019-05-24 17:02 | disposition home or self-care (01) ==
LOC: ER 09:13
DX: O90.89 Other complications of the puerperium, not elsewhere classified (principal); R51 Headache; R07.9 Chest pain, unspecified; R10.30 Lower abdominal pain, unspecified; R00.2 Palpitations; O86.22 Infection of bladder following delivery; O90.81 Anemia of the puerperium; D64.9 Anemia, unspecified; Z86.69 Personal history of other diseases of the nervous system and sense organs
CPT/HCPCS: 93005; 99285; 96375; 96365; 36415; 87086; 84443; 85025; 80053; 81001; 84484; 71046; 70450; 93010; J1200; J2765; J7030; J0696

== ENCOUNTER → 2019-07-10 | Outpatient (CLI) | payer OTHER, MEDICAID ==
[2019-07-10 14:17] LABS: ALBUMIN 4.1 g/dL (3.5-5.0); ALKALINE PHOSPHATASE 97 U/L (38-126); ANION GAP 9 (5-19); ASPARTATE AMINO TRANSFERASE 18 U/L (14-36); BILIRUBIN,DIRECT 0.1 mg/dL (0.0-0.4); BILIRUBIN,TOTAL 0.7 mg/dL (0.2-1.3); BLOOD UREA NITROGEN 13 mg/dL (7-20); CALCIUM 9.1 mg/dL (8.4-10.2); CARBON DIOXIDE 26 mmol/L (22-30); CHLORIDE 102 mmol/L (98-107); CHOLESTEROL 205.87 mg/dL (0-200); GLUCOSE 83 mg/dL (75-110); POTASSIUM 4.4 mmol/L (3.6-5.0); TOTAL PROTEIN 7.5 g/dL (6.3-8.2); TRIGLYCERIDES 42 mg/dL (<150)
[2019-07-10 14:43] LABS: DIRECT LDL 108 mg/dL (<100)
== END ==
LOC: OD 13:07
PROVIDERS: ATTEND Physician Assistant
DX: R07.9 Chest pain, unspecified (principal); R00.2 Palpitations; R06.00 Dyspnea, unspecified
CPT/HCPCS: 36415; 80048; 80061; 80076; 83735; 83880

== ENCOUNTER → 2019-08-08 | Outpatient (CLI) | payer OTHER, MEDICAID ==
--- NOTE | 2019-08-08 11:35 | RADIOLOGY REPORT (SQ) ---
EXAM DESCRIPTION: CHEST PA/LATERAL IMAGES COMPLETED DATE/TIME: 08/08/2019 10:00 am REASON FOR STUDY: COUGH COMPARISON: None. EXAM PARAMETERS: NUMBER OF VIEWS: two views TECHNIQUE: Digital Frontal and Lateral radiographic views of the chest acquired. RADIATION DOSE: NA LIMITATIONS: none FINDINGS: LUNGS AND PLEURA: No opacities, masses or pneumothorax. No pleural effusion. MEDIASTINUM AND HILAR STRUCTURES: No masses or contour abnormalities. HEART AND VASCULAR STRUCTURES: Heart normal size. No evidence for failure. BONES: No acute findings. HARDWARE: None in the chest. OTHER: No other significant finding. IMPRESSION: NO SIGNIFICANT RADIOGRAPHIC FINDING IN THE CHEST. TECHNICAL DOCUMENTATION: JOB ID: [id number] 2010 [employer]- All Rights Reserved Reading location - IP/workstation name: [email or web address]
== END ==
LOC: OD 09:28
PROVIDERS: ATTEND Physician Assistant
DX: R05 Cough (principal); R06.00 Dyspnea, unspecified
CPT/HCPCS: 71046

== ENCOUNTER 2020-02-26 14:55 | Emergency (ER) | payer OTHER, MEDICAID ==
[2020-02-26 15:23] VITALS: BP 111/62
--- NOTE | 2020-02-26 16:06 | ER Document Report ---
ED Respiratory Problem - General Chief Complaint: Cough Stated Complaint: Cough Time Seen by Provider: 02/26/20 15:33 Primary Care Provider: MACK VINSON PA-C [PHYSICIAN ACCOUNTANT TAX] - Follow up as needed Mode of Arrival: Ambulatory Information source: Patient Notes: 30-year-old female presented to ED for complaint of cough congestion and short of breath when she coughs. She states she does not have any chest pain has never had any chest pain. She states she does have intermittent lower abdominal pain and she has talked with her primary care doctor. She states she did go to the primary care doctor a month ago for the same symptoms they gave her some antibiotics and steroids and some cough medicine but the cough and congestion has not changed. She does have an upper respiratory infection at this time. Her lungs are clear to auscultation. Patient is 33 weeks . She states she does have an appointment with her ENDODONTIC ASSISTANT again next week. Consulted dr payan due to patient is 33 weeks with shortness of breath. He did come and examined the patient. He stated to please get the chest x-ray before discharging her. The chest x-ray was received and it was negative for any acute changes. Constitutional: Negative for fever. HENT: Negative for sore throat. Patient does have a runny nose and postnasal drip Eyes: Negative for visual changes. Cardiovascular: Negative for chest pain. Respiratory: Patient states she has had a cough with runny nose and shortness of breath off and on for about a month. Patient states she is short of breath and is gets more short of breath when laying down. She is 33 weeks Gastrointestinal: Negative for abdominal pain, vomiting or diarrhea. Genitourinary: 33 weeks Musculoskeletal: Negative for back pain. Skin: Negative for rash. Neurological: Negative for headaches, weakness or numbness. 10 point ROS negative except as marked above and in HPI. PHYSICAL EXAMINATION: GENERAL: Well-appearing, well-nourished and in no acute distress. HEAD: Atraumatic, normocephalic. EYES: Pupils equal round extraocular movements intact, conjunctiva are normal. ENT: Nares patent NECK: Normal range of motion LUNGS: No respiratory distress patient has mild shortness of breath due to being 33 weeks with large gravid abdomen Musculoskeletal: Normal range of motion NEUROLOGICAL: Normal speech, normal gait. PSYCH: Normal mood, normal affect. SKIN: Warm, Dry, normal turgor, no rashes or lesions noted. TRAVEL OUTSIDE OF THE [place] IN LAST 30 DAYS: No - HPI Patient complains to provider of: Cough Onset: Other - Months Duration: Intermittent episodes Initiating Event: URI Quality of pain: No pain Severity: None Pain Level: Denies Short of Breath: Mild Cough: Nonproductive Sputum amount: None Associated symptoms: Congestion, Cough, PND, Runny nose, Short of breath - Times, Other - She is 33 weeks Similar symptoms previously: Yes Recently seen / treated by doctor: Yes - Related Data Allergies/Adverse Reactions: No Known Allergies Allergy (Verified 02/26/20 15:45) Home Medications: claritin, PNV Past Medical History - General Information source: Patient - Social History Smoking Status: Never Smoker Chew tobacco use (# tins/day): No Frequency of alcohol use: None Drug Abuse: None Family History: None Patient has homicidal ideation: No - Past Medical History Cardiac Medical History: Reports: None Pulmonary Medical History: Reports: None EENT Medical History: Reports: None Neurological Medical History: Reports: Hx Migraine Endocrine Medical History: Reports: None Renal/ Medical History: Reports: None Malignancy Medical History: Reports: None GI Medical History: Reports: None Musculoskeletal Medical History: Reports None Skin Medical History: Reports None Psychiatric Medical History: Reports: None Traumatic Medical History: Reports: None Infectious Medical History: Reports: None Surgical Hx: Negative Past Surgical History: Reports: None - Immunizations Immunizations up to date: Yes Hx Diphtheria, Pertussis, Tetanus Vaccination: Yes Physical Exam - Vital signs Vitals: Temp Pulse Resp BP Pulse Ox 98.8 F 107 H 16 111/62 98 02/26/20 15:21 02/26/20 15:21 02/26/20 15:21 02/26/20 15:21 02/26/20 15:21 Course - Re-evaluation Re-evalutation: 02/26/20 22:32 Chest x-ray was negative heart tones have been recorded. Patient is 33 weeks good heart tones, mild shortness of breath due to gravid uterus. She was discharged home with instructions for upper respiratory infection and instructions to follow-up with ENDODONTIC ASSISTANT as scheduled. - Vital Signs Vital signs: Temp Pulse Resp BP Pulse Ox 98.8 F 92 16 111/62 98 02/26/20 15:21 02/26/20 15:45 02/26/20 15:21 02/26/20 15:21 02/26/20 15:21 - Diagnostic Test Radiology reviewed: Image reviewed, Reports reviewed Discharge - Discharge Clinical Impression: URI (upper respiratory infection) Qualifiers: URI type: unspecified viral URI Qualified Code(s): J06.9 - Acute upper respiratory infection, unspecified Condition: Stable Disposition: HOME, SELF-CARE Additional Instructions: UPPER RESPIRATORY ILLNESS: You have a viral infection of the respiratory passages -- a "cold." This common infection causes nasal congestion, drainage, and often sore throat and cough. It is highly contagious. The disease usually lasts about 10 to 14 days. There is no "cure" for the viral infection -- it must run its course. If there is a complication, such as bacterial infection in the nose, sinuses, middle ear, or bronchial tubes, antibiotics may be required. The antibiotics won't affect the virus. Drink plenty of fluids. A humidifier may help. An expectorant medication or decongestant may make you more comfortable. Use acetaminophen or ibuprofen for fever or aches. See the doctor if fever persists over two days, if there is any significant worsening of your symptoms, or if you simply fail to improve as expected. You have been recommended treatment with Claritin 10 mg These are all [id number] medications for cough cold congestion. You could also use his spray 1 spray each nostril twice a day. You could also use salt soda solution gargles. These will help to remove the drainage from the back your throat. Chloraseptic spray was [id number] that will also help with your sore throat. Salt and soda solution gargle 1 quart of water 1 tablespoon of salt 1 teaspoon of baking soda Mixed 3 ingredients together and boil for 1 minute Placed in a covered quart jar Use 1/2 ounce of cold solution to gargle 3 times a day USE OF ACETAMINOPHEN (Tylenol): Acetaminophen may be taken for pain relief or fever control. It's much safer than aspirin, offering a wider range of "safe" dosages. It is safe during . Some brand names are Tylenol, Panadol, Datril, Anacin 3, Tempra, and Liquiprin. Acetaminophen can be repeated every four hours. The following are maximum recommended dosages: >89 pounds or adults 650 mg to 900 mg Acetaminophen can be repeated every four hours. Maximum dose not to exceed 4000 mg a day. FOLLOW-UP CARE: If you have been referred to a physician for follow-up care, call the physicians office for an appointment as you were instructed or within the next two days. If you experience worsening or a significant change in your symptoms, notify the physician immediately or return to the Emergency Department at any time for re-evaluation. Referrals: MACK VINSON PA-C [PHYSICIAN ACCOUNTANT TAX] - Follow up as needed
--- NOTE | 2020-02-26 16:39 | RADIOLOGY REPORT (SQ) ---
EXAM DESCRIPTION: CHEST 2 VIEWS IMAGES COMPLETED DATE/TIME: 02/26/2020 4:29 pm REASON FOR STUDY: cough congestion COMPARISON: 08/08/2019. EXAM PARAMETERS: NUMBER OF VIEWS: two views TECHNIQUE: Digital Frontal and Lateral radiographic views of the chest acquired. RADIATION DOSE: NA LIMITATIONS: none FINDINGS: LUNGS AND PLEURA: No opacities, masses or pneumothorax. No pleural effusion. MEDIASTINUM AND HILAR STRUCTURES: No masses or contour abnormalities. HEART AND VASCULAR STRUCTURES: Heart normal size. No evidence for failure. BONES: No acute findings. HARDWARE: None in the chest. OTHER: No other significant finding. IMPRESSION: NO ACUTE RADIOGRAPHIC FINDING IN THE CHEST. TECHNICAL DOCUMENTATION: JOB ID: [id number] 2010 [employer] All Rights Reserved Reading location - IP/workstation name: [email or web address]
--- NOTE | 2020-02-26 18:53 | EKG REPORT ---
SEVERITY:- ABNORMAL ECG - SINUS TACHYCARDIA NONSPECIFIC T ABNORMALITIES, DIFFUSE LEADS : Confirmed by: Demarcus Jones MD 26-Feb-2020 18:53:03
== END 2020-02-26 16:58 | disposition home or self-care (01) ==
LOC: ER 14:55
DX: O99.513 Diseases of the respiratory system complicating pregnancy, third trimester (principal); J06.9 Acute upper respiratory infection, unspecified; B97.89 Other viral agents as the cause of diseases classified elsewhere; O26.893 Other specified pregnancy related conditions, third trimester; R05 Cough; R09.82 Postnasal drip; R09.89 Other specified symptoms and signs involving the circulatory and respiratory systems; R10.30 Lower abdominal pain, unspecified; Z79.899 Other long term (current) drug therapy; Z3A.33 33 weeks gestation of pregnancy
CPT/HCPCS: 71046; 93005; 93010; 99284

== ENCOUNTER 2020-03-10 17:19 | Outpatient (CLI) | payer OTHER, MEDICAID ==
[2020-03-10 18:10] LABS: BACTERIA (WET MOUNT) 4+ BACTERIA SEEN; EPITHELIALS (WET MOUNT) 3+ EPITHELIALS SEEN; RBCS (WET MOUNT) RARE RBCS SEEN; T.VAGINALIS (WET MOUNT) NO TRICHOMONAS SEEN; WBCS (WET MOUNT) 2+ WBCS SEEN; YEAST (WET MOUNT) NO YEAST SEEN
[2020-03-10 18:12] LABS: APPEARANCE,URINE SLIGHTLY-CLOUDY; BILIRUBIN,URINE NEGATIVE (NEGATIVE); COLOR,URINE YELLOW; GLUCOSE, URINE NEGATIVE (NEGATIVE); KETONES,URINE 80 mg/dL (NEGATIVE); LEUKOCYTE ESTERASE,URINE MODERATE (NEGATIVE); NITRITE,URINE NEGATIVE (NEGATIVE); PROTEIN,URINE 30 mg/dL (NEGATIVE); URINE SPECIFIC GRAVITY 1.016
[2020-03-10 18:23] LABS: URINE AMPHETAMINES SCREEN NEGATIVE; URINE BARBITURATES SCREEN NEGATIVE; URINE BENZODIAZEPINES SCREEN NEGATIVE; URINE COCAINE SCREEN NEGATIVE; URINE MARIJUANA (THC) SCREEN NEGATIVE; URINE METHADONE SCREEN NEGATIVE; URINE PHENCYCLIDINE SCREEN NEGATIVE
--- NOTE | 2020-03-10 18:51 | Non Stress Test Report ---
Non Stress Test Datetime Report Generated by CPN: 03/10/2020 18:51 DEMOGRAPHIC EGA NST: 34.6 INDICATION Indication for Study (NST) Other: discharge Indication for Study (NST) Other: discharge VITAL SIGNS Temperature - NST: 97.3 Temperature - NST: 97.2 MONITORING Monitor Explained: Monitor Explained; Test Explained; Patient Verbalized Understanding Monitor Explained: Monitor Explained; Test Explained; Patient Verbalized Understanding Time on Monitor: 03/10/2020 17:22 Time on Monitor: 03/10/2020 17:30 Time off Monitor: 03/10/2020 17:42 NST Duration: 20 NST INTERVENTIONS NST Interventions: PO Hydration NST Interventions: PO Hydration Physician Notified NST: Dr. Gaines Physician Notified NST: Dr. Gaines BABY A: [id number] BABY A Movement : Present Contraction Frequency : 0 FHR Baseline : 140 Accelerations : 15X15 Decelerations : None Variability : Moderate 6-25bpm NST Review: Meets Criteria for Reactive NST NST Review and Verified By : Olena Camp RNC NST Results: Reactive NST REPORT Report Trigger: Send Report
[2020-03-10 19:42] LABS: CHLAM PCR NOT DETECTED (NOT DETECT)
== END 2020-03-10 18:45 | disposition home or self-care (01) ==
LOC: LC 17:19
PROVIDERS: ATTEND Obstetrics & Gynecology Gynecology
DX: O26.893 Other specified pregnancy related conditions, third trimester (principal); N89.8 Other specified noninflammatory disorders of vagina; Z3A.34 34 weeks gestation of pregnancy
CPT/HCPCS: 59025; 80307; 81001; 87210; 87491; 87591

== ENCOUNTER 2020-03-19 23:59 | Outpatient (CLI) | payer OTHER, MEDICAID ==
[2020-03-20 00:48] LABS: APPEARANCE,URINE SLIGHTLY-CLOUDY; BILIRUBIN,URINE NEGATIVE (NEGATIVE); COLOR,URINE YELLOW; GLUCOSE, URINE NEGATIVE (NEGATIVE); KETONES,URINE 80 mg/dL (NEGATIVE); LEUKOCYTE ESTERASE,URINE LARGE (NEGATIVE); NITRITE,URINE NEGATIVE (NEGATIVE); PROTEIN,URINE 30 mg/dL (NEGATIVE); URINE SPECIFIC GRAVITY 1.017
--- NOTE | 2020-03-20 01:54 | Non Stress Test Report ---
Non Stress Test Datetime Report Generated by CPN: 03/20/2020 01:53 DEMOGRAPHIC EGA NST: 36.2 INDICATION Indication for Study (NST) Other: lc VITAL SIGNS Temperature - NST: 98.6 Pulse - NST: 105 RESP - NST: 16 NBPSYS NST: 116 NBPDIA NST: 70 MONITORING Monitor Explained: Monitor Explained; Test Explained; Patient Verbalized Understanding Time on Monitor: 03/20/2020 00:28 Time off Monitor: 03/20/2020 01:51 NST Duration: 83 NST INTERVENTIONS NST Interventions: PO Hydration; Reposition Patient Physician Notified NST: Dr Tyler BABY A: [id number] BABY A Movement : Present Contraction Frequency : irregular FHR Baseline : 140 Accelerations : 15X15 Decelerations : None Variability : Moderate 6-25bpm NST Review: Meets Criteria for Reactive NST NST Review and Verified By : Guera Tamayo RN NST Results: Reactive NST REPORT Report Trigger: Send Report
[2020-03-20 02:15] LABS: URINE AMPHETAMINES SCREEN NEGATIVE; URINE BARBITURATES SCREEN NEGATIVE; URINE BENZODIAZEPINES SCREEN NEGATIVE; URINE COCAINE SCREEN NEGATIVE; URINE MARIJUANA (THC) SCREEN NEGATIVE; URINE METHADONE SCREEN NEGATIVE; URINE PHENCYCLIDINE SCREEN NEGATIVE
== END 2020-03-20 02:30 | disposition home or self-care (01) ==
LOC: LC 23:59
PROVIDERS: ATTEND Obstetrics & Gynecology Gynecology
DX: O47.03 False labor before 37 completed weeks of gestation, third trimester (principal); Z3A.36 36 weeks gestation of pregnancy
CPT/HCPCS: 59025; 80307; 81005; 84112

== ENCOUNTER 2020-04-06 22:26 | Outpatient (CLI) | payer OTHER, MEDICAID ==
[2020-04-06 23:20] LABS: APPEARANCE,URINE CLOUDY; BILIRUBIN,URINE NEGATIVE (NEGATIVE); COLOR,URINE YELLOW; GLUCOSE, URINE NEGATIVE (NEGATIVE); KETONES,URINE 20 mg/dL (NEGATIVE); LEUKOCYTE ESTERASE,URINE MODERATE (NEGATIVE); NITRITE,URINE NEGATIVE (NEGATIVE); PROTEIN,URINE NEGATIVE (NEGATIVE)
[2020-04-06 23:40] LABS: URINE AMPHETAMINES SCREEN NEGATIVE; URINE BARBITURATES SCREEN NEGATIVE; URINE BENZODIAZEPINES SCREEN NEGATIVE; URINE COCAINE SCREEN NEGATIVE; URINE MARIJUANA (THC) SCREEN NEGATIVE; URINE METHADONE SCREEN NEGATIVE; URINE PHENCYCLIDINE SCREEN NEGATIVE
== END 2020-04-06 23:52 | disposition home or self-care (01) ==
LOC: LC 22:26
PROVIDERS: ATTEND Obstetrics & Gynecology Gynecology
DX: O47.1 False labor at or after 37 completed weeks of gestation (principal); Z3A.38 38 weeks gestation of pregnancy
CPT/HCPCS: 59025; 80307; 81005

== ENCOUNTER 2020-04-12 18:26 | Outpatient (CLI) | payer OTHER, MEDICAID ==
[2020-04-12 19:09] LABS: APPEARANCE,URINE CLOUDY; BILIRUBIN,URINE NEGATIVE (NEGATIVE); COLOR,URINE YELLOW; GLUCOSE, URINE NEGATIVE (NEGATIVE); KETONES,URINE 20 mg/dL (NEGATIVE); LEUKOCYTE ESTERASE,URINE LARGE (NEGATIVE); NITRITE,URINE NEGATIVE (NEGATIVE); PROTEIN,URINE 30 mg/dL (NEGATIVE); URINE SPECIFIC GRAVITY 1.017
[2020-04-12 19:33] LABS: URINE AMPHETAMINES SCREEN NEGATIVE; URINE BARBITURATES SCREEN NEGATIVE; URINE BENZODIAZEPINES SCREEN NEGATIVE; URINE COCAINE SCREEN NEGATIVE; URINE MARIJUANA (THC) SCREEN NEGATIVE; URINE METHADONE SCREEN NEGATIVE; URINE PHENCYCLIDINE SCREEN NEGATIVE
[2020-04-12] MEDS ORDERED: HYDROXYZINE PAMOATE 50 MG CAPSULE PO ONE (21:30)
[2020-04-12] MEDS ORDERED: HYDROXYZINE PAMOATE 50 MG CAPSULE ONE (21:41)
--- NOTE | 2020-04-12 22:02 | Non Stress Test Report ---
Non Stress Test Datetime Report Generated by CPN: 04/12/2020 22:02 DEMOGRAPHIC EGA NST: 39.4 EGA NST: 38.5 INDICATION Indication for Study (NST) Other: lc Indication for Study (NST) Other: LC- IUP @ 38.5 wks VITAL SIGNS Temperature - NST: 98.8 Temperature - NST: 97.4 Pulse - NST: 92 Pulse - NST: 99 RESP - NST: 17 RESP - NST: 16 NBPSYS NST: 121 NBPSYS NST: 117 NBPDIA NST: 70 NBPDIA NST: 71 MONITORING Monitor Explained: Monitor Explained; Test Explained; Patient Verbalized Understanding Monitor Explained: Monitor Explained; Test Explained; Patient Verbalized Understanding Time on Monitor: 04/12/2020 21:15 Time on Monitor: 04/06/2020 23:06 Time off Monitor: 04/12/2020 21:35 Time off Monitor: 04/06/2020 23:32 NST Duration: 20 NST Duration: 26 NST INTERVENTIONS NST Interventions: PO Hydration; Reposition Patient NST Interventions: PO Hydration; Reposition Patient Physician Notified NST: Dr Scott Physician Notified NST: Dr. Gaines BABY A: [id number] BABY A Movement : Present Movement : Present Contraction Frequency : 3-5 Contraction Frequency : irregular FHR Baseline : 145 FHR Baseline : 145 Accelerations : 15X15 Accelerations : 15X15 Decelerations : None Decelerations : None Variability : Moderate 6-25bpm Variability : Moderate 6-25bpm NST Review: Meets Criteria for Reactive NST NST Review: Meets Criteria for Reactive NST NST Review and Verified By : Yenny Gibson RN NST Review and Verified By : Johny Jones NST Results: Reactive NST Results: Reactive NST REPORT Report Trigger: Send Report
== END 2020-04-12 21:54 | disposition home or self-care (01) ==
LOC: LC 18:26
PROVIDERS: ATTEND Obstetrics & Gynecology
DX: O47.1 False labor at or after 37 completed weeks of gestation (principal); Z3A.39 39 weeks gestation of pregnancy
CPT/HCPCS: 59025; 80307; 81005; 84112

== ENCOUNTER 2020-04-19 00:18 | Inpatient (IN) | payer OTHER, MEDICAID ==
[2020-04-19] MEDS ORDERED: OXYTOCIN 10 UNIT/ML VIAL ONE (00:38)
[2020-04-19] MEDS ORDERED: LIDOCAINE 1% INJ-PF (10 MG/ML) 30 ML SDV ONE ×2 (00:38→03:45)
[2020-04-19] MEDS ORDERED: OXYTOCIN/0.9 % SODIUM CHLORIDE 30 UNIT/500 ML RTUINJ ONE (00:38)
[2020-04-19] MEDS ORDERED: MISOPROSTOL 0.2 MG TABLET ONE (00:38)
[2020-04-19 00:46] LABS: APPEARANCE,URINE CLOUDY; BILIRUBIN,URINE NEGATIVE (NEGATIVE); COLOR,URINE YELLOW; GLUCOSE, URINE NEGATIVE (NEGATIVE); KETONES,URINE NEGATIVE (NEGATIVE); LEUKOCYTE ESTERASE,URINE LARGE (NEGATIVE); NITRITE,URINE NEGATIVE (NEGATIVE); PROTEIN,URINE 30 mg/dL (NEGATIVE); URINE SPECIFIC GRAVITY 1.014
[2020-04-19 01:00] LABS: URINE AMPHETAMINES SCREEN NEGATIVE; URINE BARBITURATES SCREEN NEGATIVE; URINE BENZODIAZEPINES SCREEN NEGATIVE; URINE COCAINE SCREEN NEGATIVE; URINE MARIJUANA (THC) SCREEN NEGATIVE; URINE METHADONE SCREEN NEGATIVE; URINE PHENCYCLIDINE SCREEN NEGATIVE
--- NOTE | 2020-04-19 01:01 | Admission Physical ---
Datetime Report Generated by CPN: 04/19/2020 01:00 CURRENT ADMISSION Chief Complaint: Uterine Contractions Indication for Induction: Not Applicable Admit Impression : Term, Intrauterine Admit Plan: Admit to Unit; Initiate Labor Protocol ALLERGIES Medication Allergies: No Medication Allergies: No Known Allergies (04/19/2020) Latex: No Latex Allergies Food Allergies: n/a Environmental Allergies: n/a OBSTETRICAL HISTORY EDC: 04/15/2020 00:00 : 4 Para: 2 Term: 2 : 0 SAB: 1 IAB: 0 Ectopic: 0 Livin Cesareans: 0 VBACs: 0 Multiple Births: 0 Gestational Diabetes: No Rh Sensitization: No Incompetent Cervix: No ENZO: No Infertility: No ART Treatment: No Uterine Anomaly: No IUGR: No Hx Previous C/S: No Macrosomia: No Hx Loss/Stillborn: No PIH: No Hx : No Placenta Previa/Abruption: No Depression/PP Depression: No PTL/PROM: No Post Hemorrhage: No Current Procedures: Ultrasound Obstetrical History Comments: 2014 G2- 2017 SAB G3- 05/18/2019 G4- close spaced pregnancies lose spaced SEE RECORDS Alcohol: No Marijuana : No Cocaine: No Other Illicit Drugs: No Cigarettes: Never Smoker. [id number] MEDICAL HISTORY Diabetes: No Blood Transfusion: No Pulmonary Disease (Asthma, TB): No Breast Disease: No Hypertension: No Hygiene Assistant Surgery: No Heart Disease: No Hosp/Surgery: No Autoimmune Disorder: No Anesthetic Complications: No Kidney Disease: No Abnormal Pap Smear: No Neuro/Epilepsy: No Psychiatric Disorders: No Other Medical Diseases: No Hepatitis/Liver Disease: No Significant Family History: No Varicosities/Phlebitis: No Trauma/Violence : No Thyroid Dysfunction: No Medical History Comments: palpitations (Annotations: Data stored by [facility] on behalf of user) INFECTIOUS HISTORY Gonorrhea: No Genital Herpes: No Chlamydia: No Tuberculosis: No Syphilis: No Hepatitis: No HIV/AIDS Exposure: No Rash or Viral Illness: No HPV: No PHYSICAL EXAM General: Normal HEENT: Normal Neurologic: Normal Thyroid: Normal Heart: Normal Lungs: Normal Breast: Deferred Back: Normal Abdomen: Normal Genitourinary Exam: Normal Extremities: Normal DTRs: Normal Pelvic Type: Adequate FETUS A EGA: 40.4 PLANS FOR LABOR AND DELIVERY Labor and Delivery: None Pain Management: Epidural Feeding Preference: Formula Circumcision: Yes INFORMED CONSENT Signature: with User ID: [email or web address]
[2020-04-19 01:20] LABS: ABSOLUTE LYMPHOCYTES (AUTO) 1.3 10^3/uL (0.5-4.7); ABSOLUTE MONOCYTES (AUTO) 0.7 10^3/uL (0.1-1.4); ABSOLUTE NEUT (AUTO) 7.6 10^3/uL (1.7-8.2); BASOPHILS % (AUTO) 0.2 % (0-2); EOSINOPHILS % (AUTO) 0.3 % (0-6); HEMATOCRIT 34.2 % (36.0-47.0); HEMOGLOBIN 11.5 g/dL (12.0-15.5); LYMPHOCYTES % (AUTO) 13.6 % (13-45); MEAN CORPUSCULAR HEMOGLOBIN 26.8 pg (27.0-33.4); MEAN CORPUSCULAR HGB CONC 33.6 g/dL (32.0-36.0); MEAN CORPUSCULAR VOLUME 80 fl (80-97); MONOCYTES % (AUTO) 7.4 % (3-13); PLATELET COUNT 175 10^3/uL (150-450); RED BLOOD COUNT 4.29 10^6/uL (3.72-5.28); RED CELL DISTRIBUTION WIDTH 14.9 % (11.5-14.0); SEGMENTED NEUTROPHILS % (AUTO) 78.5 % (42-78); TOTAL CELLS COUNTED % (AUTO) 100 %; WHITE BLOOD COUNT 9.8 10^3/uL (4.0-10.5)
[2020-04-19] MEDS ORDERED: FENTANYL/BUPIVACAINE/NS/PF 300 MCG/150 ML RTUINJ EPI ONE (01:27)
[2020-04-19] MEDS ORDERED: ROPIVACAINE HCL 0.2% INJ/PF (2 MG/ML) 20 ML SDV ONE (01:27)
[2020-04-19] MEDS ORDERED: EPHEDRINE SULFATE INJ 50 MG/1 ML AMPULE ONE (01:27)
[2020-04-19] MEDS ORDERED: ACETAMINOPHEN WITH CODEINE #3 TABLET ONE (03:28)
[2020-04-19] MEDS ORDERED: MORPHINE SULFATE 10 MG/ML INJ ONE (03:44)
[2020-04-19] MEDS ORDERED: DIPHENHYDRAMINE HCL 25 MG CAPSULE PO PRN (04:09)
[2020-04-19] MEDS ORDERED: GLYCERIN/WITCH HAZEL LEAF 1 EACH MED..WIPE TP PRN (04:09)
[2020-04-19] MEDS ORDERED: MAGNESIUM HYDROXIDE SUSP 30 ML UDCUP PO PRN (04:09)
[2020-04-19] MEDS ORDERED: PSEUDOEPHEDRINE HCL 30 MG TABLET PO PRN (04:09)
[2020-04-19] MEDS ORDERED: OXYTOCIN/0.9 % SODIUM CHLORIDE 30 UNIT/500 ML RTUINJ IV PRN (04:09)
[2020-04-19] MEDS ORDERED: MEASLES,MUMPS&RUBELLA VACC/PF 0.5 ML VIAL SUBCUT PRN (04:09)
[2020-04-19] MEDS ORDERED: DIPH/PERTUSS(ACELL)/TETANUS VAC/PF 0.5 ML SYR (>=10YO) IM PRN (04:09)
[2020-04-19] MEDS ORDERED: MAG HYDROX/AL HYDROX/SIMETH SUSP 30 ML UDCUP PO PRN (04:09)
[2020-04-19] MEDS ORDERED: DIBUCAINE 1% OINTMENT 28 GM TP PRN (04:09)
[2020-04-19] MEDS ORDERED: BENZOCAINE/MENTHOL AEROSOL SPRAY 56 ML TOP PRN (04:09)
[2020-04-19] MEDS ORDERED: ACETAMINOPHEN 325 MG TABLET PO PRN (04:09)
[2020-04-19] MEDS ORDERED: FAMOTIDINE 20 MG TABLET PO PRN (04:09)
[2020-04-19] MEDS ORDERED: VARICELLA VACC/PF (1350 UNIT/0.5 ML) 0.5 ML VIAL SUBCUT PRN (04:09)
[2020-04-19] MEDS ORDERED: ACETAMINOPHEN 650 MG SUPP.RECT PR PRN (04:09)
[2020-04-19] MEDS ORDERED: ZOLPIDEM TARTRATE 5 MG TABLET PO PRN (04:09)
[2020-04-19] MEDS ORDERED: CEFTRIAXONE 1 GM/D5W RTU 1 GM/50 ML RTUPB IV ONE ×2 (05:06→05:22)
--- NOTE | 2020-04-19 05:47 | Birth Certificate Data ---
Cert Data Datetime Report Generated by CPN: 04/19/2020 05:47 CERTIFICATE DATA Delivery Provider: Pedro Gaines MD (03/10/2020 17:53:Pedro Gaines MD (WEB)) 47b. Date of First Visit: 12/05/2019 00:00 (03/10/2020 17:53:Hazel Quiroz RN) 47c. Date of Last Visit: 04/02/2020 00:00 (03/10/2020 17:53:Hazel Quiroz RN) 47d. Number of Visits: 7 (03/10/2020 17:53:Hazel Quiroz RN) 48a. Number of Prev Live Births: 2 (03/10/2020 17:53:Hazel Quiroz RN) 48b. Now Livin (03/10/2020 17:53:Viridiana Guerrero RN) 48c. Live Births Now : 0 (03/10/2020 17:53:QS system process) 48e. Losses: 1 (03/10/2020 17:53:Hazel Quiroz RN) 48f. Date of Last Preg Loss: 12/09/2017 00:00 (03/10/2020 17:53:Hazel Quiroz RN) RISK FACTORS IN THIS 49a. Diabetes: No (03/10/2020 17:53:KRISTEL Patel) 49b. Hypertension: No (03/10/2020 17:53:KRISTEL Patel) 49c. Previous Births: 0 (03/10/2020 17:53:Hazel Quiroz RN) 49d. Stillborns: No (03/10/2020 17:53:KRISTEL Patel) 49d. IUGR: No (03/10/2020 17:53:KRISTEL Patel) 49e. Infertility Treatment: No (03/10/2020 17:53:KRISTEL Patel) 49f. Previous Cesareans: 0 (03/10/2020 17:53:Hazel Quiroz RN) Mother's Height 50b. Height Inches: 69 (04/19/2020 00:46:QS system process) Mother's Weight 51a. Pre- Weight (lbs): 221 (03/10/2020 17:53:Hazel Quiroz RN) 51b. Weight at Delivery (lbs): 240 (04/19/2020 00:41:QS system process) 52. Dt Last Normal Menses Began: 07/10/2019 00:00 (03/10/2020 17:53:Hazel Quiroz RN) Infections Present/Treated 53a. Gonorrhea: No (03/10/2020 17:53:KRISTEL Patel) Results this Hospital Visit : Negative (03/10/2020 17:53:Hazel Quiroz RN) 53b. Syphilis: No (03/10/2020 17:53:KRISTEL Patel) 53c. Chlamydia: No (03/10/2020 17:53:KRISTEL Patel) Results this Hospital Visit: Negative (03/10/2020 17:53:Hazel Quiroz RN) 53d. Hepatitis B: No (03/10/2020 17:53:KRISTEL Patel) Results this Hospital Visit: Negative (03/10/2020 17:53:Viridiana Guerrero RN) 53e. Hepatitis C: Negative (03/10/2020 17:53:KRISTEL Patel) 53h. Mother Tested for HBsAG: Yes (03/10/2020 17:53:KRISTEL Patel) 53i. Date Tested: 12/05/2019 00:00 (03/10/2020 17:53:KRISTEL Patel) 53j. Test Result: Negative (03/10/2020 17:53:Viridiana Guerrero RN) Obstetric Procedures 54a, b, c. Obstetric Procedures: Ultrasound (03/10/2020 17:53:KRISTEL Patel) Cigarette Smoking Cigarette Smoking: Never Smoker. [id number] (03/10/2020 17:53:Charleen Douglass RN) 55a. 3 Months Before Preg - Ci (03/10/2020 17:53:Yomi Gibson RN) 55a. Packs: 0 (03/10/2020 17:53:Yomi Gibson RN) 55b. 1st Trimester of Preg- Ci (03/10/2020 17:53:Yomi Gibson RN) 55b. Packs: 0 (03/10/2020 17:53:Yomi Gibson RN) 55c. 2nd Trimester of Preg- Ci (03/10/2020 17:53:Yomi Gibson RN) 55c. Packs: 0 (03/10/2020 17:53:Yomi Gibson RN) 55d. 3rd Trimester of Preg- Ci (03/10/2020 17:53:Yomi Gibson RN) 55d. Packs: 0 (03/10/2020 17:53:Yomi Gibson RN) Onset of Labor 56a. PROM >12 Hrs: 1.33 (03/10/2020 17:53:QS system process) 56b. Precipitous Labor <3 Hrs: 4 (03/10/2020 17:53:QS system process) 56c. Prolonged Labor > 20 Hrs: 4 (03/10/2020 17:53:QS system process) 57a. Induction of Labor: N/A (03/10/2020 17:53:Francia Soliz RN) 57c. Non-Vertex Presentation A: Vertex (03/10/2020 17:53:Denise Pineda RN) 57d. Steroids - Lung Mat: None (03/10/2020 17:53:Francia Soliz RN) 57d. Steroids - Lung Mat: Not Applicable (03/10/2020 17:53:Francia Soliz RN) 57g. Moderate/Heavy Meconium: Clear (04/19/2020 02:00:Francia Soliz RN) 57h. Intolerance of Labor: N/A (03/10/2020 17:53:Denise Pineda RN) : N/A (03/10/2020 17:53:Denise Pineda RN) 57i. Epidural/Spinal Anesthesia: None (03/10/2020 17:53:Francia Soliz RN) Method of Delivery 58a. Forceps - Unsuccessful A: N/A (03/10/2020 17:53:Denise Pineda RN) 58b. Vacuum - Unsuccessful A: N/A (03/10/2020 17:53:Denise Pineda RN) 58c. Presentation at 58c. Presentation at - A : Vertex (03/10/2020 17:53:Denise Pineda RN) 58c. Presentation at - A : N/A (03/10/2020 17:53:Denise Pineda RN) 58c. Presentation at - A : Cephalic (04/12/2020 18:35:Hazel Quiroz RN) Final Route and Method of Del 58d. Baby A Route/Delivery: Vaginal (04/19/2020 03:20:Francia Soliz RN) 58e. Trial of Labor Attempted: No (03/10/2020 17:53:Francia Soliz RN) 58e. Trial of Labor Attempted A: N/A (03/10/2020 17:53:Francia Soliz RN) 58e. Trial of Labor Attempted B: N/A (03/10/2020 17:53:Francia Soliz RN) Maternal Morbidity 59b. 3rd or 4th Degree Lacs: Perineal; Vaginal (03/10/2020 17:53:Pedro Gaines, MD ([facility])) Birthweight Baby A: 4080 (03/10/2020 17:53:Francia Soliz RN) 60a. Pounds : 9 (03/10/2020 17:53:QS system process) 60b. Ounces: 0 (03/10/2020 17:53:QS system process) 61. GA at Delivery Baby A: 40.4 (03/10/2020 17:53:Denise Pineda RN) : Full Term- 39- 40.6 Weeks (03/10/2020 17:53:QS system process) 62a. 5 Minute Baby A: 9 (03/10/2020 17:53:QS system process)
--- NOTE | 2020-04-19 05:47 | Delivery Summary ---
Del Sum A-C Datetime Report Generated by CPN: 04/19/2020 05:47 DELIVERY PERSONNEL DELIVERY PERSONNEL: [id number] Delivery Doctor:: Pedro Gaines MD Labor and Delivery Nurse:: Francia Soliz RNclay structure builder and servicer Nurse:: Denise Pineda RN (Annotations: Data stored by CPN on behalf of user) Supervisor Special Education/RETORT SETTER: ST Tamika (Annotations: Data stored by CPN on behalf of user) Additional Personnel: : Collette Ortiz RN (Annotations: Data stored by CPN on behalf of user) MATERNAL INFORMATION Delivery Anesthesia: None Medications After Delivery: Pitocin 30 Units in 500ml NS/D5W Delivery QBL: 200 Maternal Complications: None LABOR SUMMARY EDC: 04/15/2020 00:00 No. Babies in Womb: 1 Attempted: No Labor Anesthesia: None LABOR INFORMATION Reason for Induction: Not Applicable Onset of Labor: 04/18/2020 23:00 Complete Dilatation: 04/19/2020 01:58 Oxytocin: N/A Group B Beta Strep: negative Steroids Given: None Reason Steroids Not Administered: Not Applicable MEMBRANES Membranes Rupture Method: Artificial Rupture of Membranes: 04/19/2020 02:00 Length of Rupture (hr): 1.33 Amniotic Fluid Color: Clear Amniotic Fluid Amount: Moderate Amniotic Fluid Odor: Normal STAGES OF LABOR Stage 1 hr: 2 Stage 1 min: 58 Stage 2 hr: 1 Stage 2 min: 22 Stage 3 hr: 0 Stage 3 min: 23 Total Time in Labor hr: 4 Total Time in Labor min: 43 VAGINAL DELIVERY Episiotomy: None Laceration #1: Perineal; Vaginal Laceration Extension #1: Fourth Degree Laceration Repair: Yes Laceration Repair Note: rectal mucosa three layers, ext sphincter 3 layers,remainder in usual fashion Sponge Count Correct: N/A CSECTION DELIVERY Primary Indication: N/A Secondary Indication: N/A CSection Incidence: N/A Labor: N/A Elective: N/A CSection Incision: N/A BABY A INFORMATION Delivery Date/Time: 04/19/2020 03:20 Method of Delivery: Vaginal Nurse Controlled Delivery: Yes Born in Route : No : N/A Forceps: N/A Vacuum Extraction: N/A Shoulder Dystocia : Yes PRESENTATION/POSITION BABY A Presentation: Cephalic Cephalic Presentation: Vertex Vertex Position: Left Occipital Anterior Breech Presentation: N/A PLACENTA INFORMATION BABY A Placenta Delivery Time : 04/19/2020 03:43 Placenta Method of Delivery: Spontaneous Placenta Status: Delivered SCORES BABY A Heart Rate 1 min: >100 bpm Resp Effort 1 min: Good Cry Reflex Irritability 1 min: Cough or Sneeze or Pulls Away Muscle Tone 1 min: Active Motion Color 1 min: Blue/Pale SCORE 1 MIN: 8 Heart Rate 5 min: >100 bpm Resp Effort 5 min: Good Cry Reflex Irritability 5 min: Cough or Sneeze or Pulls Away Muscle Tone 5 min: Active Motion Color 5 min: Body [place], Extremities Blue SCORE 5 MIN: 9 INFANT INFORMATION BABY A Gestational Age at Delivery: 40.4 Gestational Status: Full Term- 39- 40.6 Weeks Outcome : Liveborn Condition : Stable Sex: Male WEIGHT/LENGTH BABY A Birthweight (gm): 4080 Weight (lb): 9 Infant Weight (oz): 0 Infant Length (in): 20.50 Length (cm): 52.07 CORD INFORMATION BABY A No. Cord Vessels: 3 Nuchal Cord : N/A Cord Blood Taken: Yes-For Storage (Mom's Blood type +) Infant Suction: None ASSESSMENT BABY A Infant Complications: Meconium Complications- Other: terminal mec Physical Findings at Delivery: Within Normal Limits Physical Findings- Other: see initial nursery assessment Respirations: Appears Normal Skin to Skin: No Director Retirement/ALS Called : No Care By: Karla Dickinson RN Transferred To: Remains with Mother BABY B INFORMATION : N/A SIGNATURES Signature: with User ID: [email or web address]
[2020-04-19] MEDS: IBUPROFEN 800 MG TABLET PO SCH ×3 (07:01→22:38)
[2020-04-19] MEDS ORDERED: ACETAMINOPHEN WITH CODEINE #3 TABLET PO ONE (07:15)
[2020-04-19] MEDS: PRENATAL VITAMIN W DHA CAPSULE PO SCH (09:45)
[2020-04-19] MEDS: FERROUS SULFATE 325 MG TABLET PO SCH ×2 (09:45→17:43)
[2020-04-19] MEDS: DOCUSATE SODIUM 100 MG CAPSULE PO SCH ×2 (09:46→17:43)
[2020-04-19] MEDS: SENNOSIDES/DOCUSATE 8.6-50 MG 1 EACH TABLET PO SCH (09:46)
--- NOTE | 2020-04-19 11:27 | PDOC PROGRESS REPORT ---
Subjective-OB Progress Note for:: 04/19/20 Subjective: Doing well, no c/o, hsb and baby at BS, c/o of perineal pain and 4th degree, bottle feeding Physical Exam (OB) Vital Signs: Temp Pulse Resp BP Pulse Ox 97.8 F 88 16 133/81 H 100 04/19/20 10:00 04/19/20 08:00 04/19/20 08:00 04/19/20 08:00 04/19/20 08:00 Intake & Output 04/18/20 04/19/20 04/20/20 06:59 06:59 06:59 Intake Total 400 Balance 400 Weight 109 kg - PIH/Pre-Eclampsia Headache: Absent Epigastric Pain: No Visual Changes: No - Maternal Morbidity 59. Maternal Morbidity (serious complications experinced by the mother associated with labor and delivery: Third or fourth degree perineal laceration - Lochia Lochia Amount: Scant < 10 ml Lochia Color: Rubra/Red - Abdomen Description: Soft, Round Hernia Present: No Fundal Description: Firm, Midline Fundal Height: u/u - u/2 Objective-Diagnostic Laboratory: 04/19/20 00:57 04/19/20 04/19/20 04/19/20 00:30 00:57 00:57 WBC 9.8 RBC 4.29 Hgb 11.5 L Hct 34.2 L MCV 80 MCH 26.8 L MCHC 33.6 RDW 14.9 H Plt Count 175 Seg Neutrophils % 78.5 H Urine Color YELLOW Urine Appearance CLOUDY Urine pH 6.0 Ur Specific [place] 1.014 Urine Protein 30 H Urine Glucose (UA) NEGATIVE Urine Ketones NEGATIVE Urine Blood SMALL H Urine Nitrite NEGATIVE Ur Leukocyte Esterase LARGE H Blood Type B POSITIVE Antibody Screen NEGATIVE Assessment and Plan(PN) - Assessment and Plan (1) Fourth degree perineal laceration during delivery Is this a current diagnosis for this admission?: Yes (2) Vaginal delivery Is this a current diagnosis for this admission?: Yes - Time Spent with Patient Time with patient: Less than 15 minutes Medications reviewed and adjusted accordingly: Yes - Disposition Anticipated Discharge Disposition: Home, Self Care Anticipated Discharge Timeframe: within 48 hours
[2020-04-19] MEDS: ACETAMINOPHEN WITH CODEINE #3 TABLET PO PRN ×2 (11:41→22:45)
[2020-04-19] MEDS ORDERED: CYCLOBENZAPRINE HCL 10 MG TABLET ONE (17:40)
[2020-04-19] MEDS ORDERED: CYCLOBENZAPRINE HCL 10 MG TABLET PO ONE (17:40)
[2020-04-20] MEDS ORDERED: ACETAMINOPHEN WITH CODEINE #3 TABLET PO ONE (00:45)
[2020-04-20] MEDS: ACETAMINOPHEN WITH CODEINE #3 TABLET PO PRN ×2 (00:51→09:43)
[2020-04-20] MEDS: IBUPROFEN 800 MG TABLET PO SCH ×3 (05:59→22:04)
[2020-04-20 06:33] LABS: HEMATOCRIT 29.7 % (36.0-47.0); MEAN CORPUSCULAR HEMOGLOBIN 26.9 pg (27.0-33.4); MEAN CORPUSCULAR HGB CONC 33.6 g/dL (32.0-36.0); MEAN CORPUSCULAR VOLUME 80 fl (80-97); PLATELET COUNT 196 10^3/uL (150-450); RED BLOOD COUNT 3.72 10^6/uL (3.72-5.28); RED CELL DISTRIBUTION WIDTH 14.9 % (11.5-14.0)
[2020-04-20] MEDS ORDERED: ACETAMINOPHEN WITH CODEINE #3 TABLET ONE (09:41)
[2020-04-20] MEDS: DOCUSATE SODIUM 100 MG CAPSULE PO SCH ×2 (09:42→18:06)
[2020-04-20] MEDS: PRENATAL VITAMIN W DHA CAPSULE PO SCH (09:42)
[2020-04-20] MEDS: SENNOSIDES/DOCUSATE 8.6-50 MG 1 EACH TABLET PO SCH (09:43)
[2020-04-20] MEDS: FERROUS SULFATE 325 MG TABLET PO SCH ×2 (09:43→18:06)
[2020-04-20] MEDS ORDERED: ACETAMINOPHEN WITH CODEINE #3 TABLET PO PRN (11:21)
[2020-04-20] MEDS ORDERED: CYCLOBENZAPRINE HCL 10 MG TABLET PO PRN (11:41)
--- NOTE | 2020-04-20 12:07 | PDOC PROGRESS REPORT ---
Subjective-OB Progress Note for:: 04/20/20 Subjective: reports bleeding slowing, pain controlled with current meds. requesting flexeril for back pain Physical Exam (OB) Vital Signs: Temp Pulse Resp BP Pulse Ox 98.4 F 80 16 116/72 99 04/20/20 08:05 04/20/20 07:48 04/20/20 07:48 04/20/20 07:48 04/20/20 07:48 Intake & Output 04/19/20 04/20/20 04/21/20 06:59 06:59 06:59 Intake Total 1300 380 Output Total 2 Balance 1298 380 Weight 109 kg - Maternal Morbidity 59. Maternal Morbidity (serious complications experinced by the mother associated with labor and delivery: Third or fourth degree perineal laceration - Abdomen Description: Soft Hernia Present: No Fundal Description: Firm, Midline Fundal Height: u/u - u/2 - Abdominal Distension: No distension Tenderness: Nontender - Extremities Lower extremities: Nathen's sign - neg Calf: Normal, Nontender Objective-Diagnostic Laboratory: 04/20/20 06:11 04/20/20 06:11 WBC 14.0 H RBC 3.72 Hgb 10.0 L Hct 29.7 L MCV 80 MCH 26.9 L MCHC 33.6 RDW 14.9 H Plt Count 196 Assessment and Plan(PN) - Time Spent with Patient Time with patient: Less than 15 minutes Medications reviewed and adjusted accordingly: Yes - Disposition Anticipated Discharge Disposition: Home, Self Care Anticipated Discharge Timeframe: within 24 hours
[2020-04-20] MEDS ORDERED: CYCLOBENZAPRINE HCL 10 MG TABLET ONE (12:39)
[2020-04-20] MEDS: OXYCODONE-ACETAMINOPHEN 5-325 MG TABLET PO PRN ×2 (15:21→22:02)
[2020-04-21] MEDS: OXYCODONE-ACETAMINOPHEN 5-325 MG TABLET PO PRN ×5 (02:05→22:05)
[2020-04-21] MEDS: IBUPROFEN 800 MG TABLET PO SCH ×3 (06:05→22:04)
--- NOTE | 2020-04-21 08:35 | PDOC PROGRESS REPORT ---
Subjective-OB Progress Note for:: 04/21/20 Subjective: sitting up in chair, concerned about not having a BM with her 4th degree, only thing that helps is the Percocet and Motrin, has been using sitz bath, bottle feeding Physical Exam (OB) Vital Signs: Temp Pulse Resp BP Pulse Ox 98.2 F 89 18 115/67 97 04/20/20 22:00 04/20/20 20:03 04/20/20 20:03 04/20/20 20:03 04/20/20 20:03 Intake & Output 04/20/20 04/21/20 04/22/20 06:59 06:59 06:59 Intake Total 1300 980 Output Total 2 Balance 1298 980 - PIH/Pre-Eclampsia DTR's: 1 + Clonus: Negative Headache: Absent Epigastric Pain: No Visual Changes: No - Maternal Morbidity 59. Maternal Morbidity (serious complications experinced by the mother associated with labor and delivery: Third or fourth degree perineal laceration - Lochia Lochia Amount: Small 10-25 ml Lochia Color: Serosa/Brown - Abdomen Description: Soft Hernia Present: No Fundal Description: Firm, Midline Fundal Height: u/u - u/2 Objective-Diagnostic Laboratory: 04/20/20 06:11 Assessment and Plan(PN) - Assessment and Plan (1) Fourth degree perineal laceration during delivery Is this a current diagnosis for this admission?: Yes (2) Vaginal delivery Is this a current diagnosis for this admission?: Yes - Time Spent with Patient Time with patient: Less than 15 minutes Medications reviewed and adjusted accordingly: Yes - Disposition Anticipated Discharge Disposition: Home, Self Care Anticipated Discharge Timeframe: within 24 hours - home today, instructions givn for 4th degree, no tampons, nothing in rectum, only use percocet when needed cause of constipation
--- NOTE | 2020-04-21 08:44 | PDOC DISCHARGE SUMMARY ---
Impression - Admit/DC Date/PCP Admission Date/Primary Care Provider: 04/19/20 00:46 SWETHA BRANTLEY MD Discharge Date: 04/21/20 - Discharge Diagnosis (1) Fourth degree perineal laceration during delivery Is this a current diagnosis for this admission?: Yes (2) Vaginal delivery Is this a current diagnosis for this admission?: Yes - Additional Information Resuscitation Status: Full Code Discharge Diet: As Tolerated, Regular Discharge Activity: Activity As Tolerated, No Lifting Over 10 Pounds, No Lifting/Push/Pulling, Pelvic Rest Referrals: SWETHA BRANTLEY MD [Primary Care Provider] - (rt wha 1 week to check 4th degree) Prescriptions: Oxycodone HCl/Acetaminophen [Percocet 5-325 mg Tablet] 1 tab PO Q4HP PRN #10 tablet PRN Reason: Docusate Sodium [Colace 100 mg Capsule] 100 mg PO BID #60 capsule Ibuprofen [Motrin 800 mg Tablet] 800 mg PO Q8 #60 tablet Sennosides/Docusate 8.6-50 mg [Senna Plus Tablet] 1 each PO DAILY #30 tablet Glycerin/Witch Amym Astor [Tucks Take-Alongs Wipe] 1 each TP PRN PRN #30 med..pad PRN Reason: Home Medications: Prenat 115/Iron Fum/Folic/Dss [ 19 Tablet] 1 tab PO DAILY 03/10/20 Docusate Sodium [Colace 100 mg Capsule] 100 mg PO BID #60 capsule 04/21/20 Glycerin/Witch Ammy Astor [Tucks Take-Alongs Wipe] 1 each TP PRN PRN #30 med..pad 04/21/20 Ibuprofen [Motrin 800 mg Tablet] 800 mg PO Q8 #60 tablet 04/21/20 Oxycodone HCl/Acetaminophen [Percocet 5-325 mg Tablet] 1 tab PO Q4HP PRN #10 tablet 04/21/20 Vit/Dha [ Multi + Dha Capsule] 1 cap PO DAILY capsule 04/21/20 Sennosides/Docusate 8.6-50 mg [Senna Plus Tablet] 1 each PO DAILY #30 tablet 04/21/20 HPI Gestational Age: 40.4 Reason(s) for Admission: Onset of Labor Procedures: NST, Ultrasound Intrapartum Procedure(s): Spontaneous Vaginal Delivery Complication(s): Laceration-Vaginal Laceration-Degree: 4th - rev 4th degree instructions, wha in 1 week, perineum examined, 4th degree intact Hospital Course 59. Maternal Morbidity (serious complications experinced by the mother associated with labor and delivery: Third or fourth degree perineal laceration Results Laboratory Results: WBC 14.0 10^3/uL (4.0-10.5) H 04/20/20 06:11 RBC 3.72 10^6/uL (3.72-5.28) 04/20/20 06:11 Hgb 10.0 g/dL (12.0-15.5) L 04/20/20 06:11 Hct 29.7 % (36.0-47.0) L 04/20/20 06:11 MCV 80 fl (80-97) 04/20/20 06:11 MCH 26.9 pg (27.0-33.4) L 04/20/20 06:11 MCHC 33.6 g/dL (32.0-36.0) 04/20/20 06:11 RDW 14.9 % (11.5-14.0) H 04/20/20 06:11 Plt Count 196 10^3/uL (150-450) 04/20/20 06:11 Lymph % (Auto) 13.6 % (13-45) 04/19/20 00:57 [place] % (Auto) 7.4 % (3-13) 04/19/20 00:57 Eos % (Auto) 0.3 % (0-6) 04/19/20 00:57 Baso % (Auto) 0.2 % (0-2) 04/19/20 00:57 Absolute Neuts (auto) 7.6 10^3/uL (1.7-8.2) 04/19/20 00:57 Absolute Lymphs (auto) 1.3 10^3/uL (0.5-4.7) 04/19/20 00:57 Absolute Monos (auto) 0.7 10^3/uL (0.1-1.4) 04/19/20 00:57 Absolute Eos (auto) 0.0 10^3/uL (0.0-0.6) 04/19/20 00:57 Absolute Basos (auto) 0.0 10^3/uL (0.0-0.2) 04/19/20 00:57 Seg Neutrophils % 78.5 % (42-78) H 04/19/20 00:57 Urine Color YELLOW 04/19/20 00:30 Urine Appearance CLOUDY 04/19/20 00:30 Urine pH 6.0 (5.0-9.0) 04/19/20 00:30 Ur Specific [place] 1.014 04/19/20 00:30 Urine Protein 30 mg/dL (NEGATIVE) H 04/19/20 00:30 Urine Glucose (UA) NEGATIVE mg/dL (NEGATIVE) 04/19/20 00:30 Urine Ketones NEGATIVE mg/dL (NEGATIVE) 04/19/20 00:30 Urine Blood SMALL (NEGATIVE) H 04/19/20 00:30 Urine Nitrite NEGATIVE (NEGATIVE) 04/19/20 00:30 Urine Bilirubin NEGATIVE (NEGATIVE) 04/19/20 00:30 Urine Urobilinogen 2.0 mg/dL (<2.0) H 04/19/20 00:30 Ur Leukocyte Esterase LARGE (NEGATIVE) H 04/19/20 00:30 Urine Ascorbic Acid NEGATIVE (NEGATIVE) 04/19/20 00:30 Urine Opiates Screen NEGATIVE 04/19/20 00:30 Urine Methadone Screen NEGATIVE 04/19/20 00:30 Ur Barbiturates Screen NEGATIVE 04/19/20 00:30 Ur Phencyclidine Scrn NEGATIVE 04/19/20 00:30 Ur Amphetamines Screen NEGATIVE 04/19/20 00:30 U Benzodiazepines Scrn NEGATIVE 04/19/20 00:30 Urine Cocaine Screen NEGATIVE 04/19/20 00:30 U Marijuana (THC) Screen NEGATIVE 04/19/20 00:30 RPR NONREACTIVE (NONREACTIVE) 04/19/20 00:57 Blood Type B POSITIVE 04/19/20 00:57 Antibody Screen NEGATIVE 04/19/20 00:57
[2020-04-21] MEDS ORDERED: BISACODYL 5 MG TABEC PO ONE (09:30)
[2020-04-21] MEDS: PRENATAL VITAMIN W DHA CAPSULE PO SCH (10:22)
[2020-04-21] MEDS: SENNOSIDES/DOCUSATE 8.6-50 MG 1 EACH TABLET PO SCH (10:22)
[2020-04-21] MEDS: FERROUS SULFATE 325 MG TABLET PO SCH ×2 (10:22→19:37)
[2020-04-21] MEDS: DOCUSATE SODIUM 100 MG CAPSULE PO SCH ×2 (10:22→19:37)
[2020-04-22] MEDS: OXYCODONE-ACETAMINOPHEN 5-325 MG TABLET PO PRN ×3 (02:14→13:35)
[2020-04-22] MEDS: IBUPROFEN 800 MG TABLET PO SCH (06:25)
[2020-04-22 09:25] VITALS: BP 110/55
[2020-04-22] MEDS ORDERED: MAGNESIUM CITRATE 296 ML BOTTLE PO ONE ×2 (10:34→12:00)
[2020-04-22] MEDS: PRENATAL VITAMIN W DHA CAPSULE PO SCH (11:28)
[2020-04-22] MEDS: DOCUSATE SODIUM 100 MG CAPSULE PO SCH (11:28)
[2020-04-22] MEDS: FERROUS SULFATE 325 MG TABLET PO SCH (11:29)
[2020-04-22] MEDS: SENNOSIDES/DOCUSATE 8.6-50 MG 1 EACH TABLET PO SCH (11:29)
[2020-04-22] MEDS ORDERED: NAPROXEN 250 MG TABLET PO SCH (17:00)
== END 2020-04-22 14:13 | disposition home or self-care (01) | DRG 768 ==
LOC: LC 00:18 → LR 00:46 → 2S 06:08
PROVIDERS: ADMIT Obstetrics & Gynecology Gynecology; ATTEND Obstetrics & Gynecology Gynecology
PROC: 10E0XZZ Delivery of Products of Conception, External Approach (ICD-10-PCS; principal; 2020-04-19)
PROC: 0DQP0ZZ Repair Rectum, Open Approach (ICD-10-PCS; 2020-04-19)
PROC: 10907ZC Drainage of Amniotic Fluid, Therapeutic from Products of Conception, Via Natural or Artificial Opening (ICD-10-PCS; 2020-04-19)
DX: O70.3 Fourth degree perineal laceration during delivery (principal); Z37.0 Single live birth; O99.325 Drug use complicating the puerperium; Z20.828 Contact with and (suspected) exposure to other viral communicable diseases; K59.03 Drug induced constipation; T40.2X5A Adverse effect of other opioids, initial encounter; Z79.899 Other long term (current) drug therapy; Z3A.40 40 weeks gestation of pregnancy
CPT/HCPCS: 36415; 80307; 81005; 85025; 85027; 86592; 86850; 86900; 86901; 94760; J0696; J2270; J2590; J2795; J3010; J3490

== ENCOUNTER 2020-05-10 07:01 | Observation (INO) | payer OTHER, MEDICAID ==
[2020-05-10] MEDS ORDERED: MORPHINE SULFATE 10 MG/ML INJ IV ONE (07:44)
[2020-05-10] MEDS ORDERED: NORMAL SALINE 1000 ML 1,000 ML IV ONE (07:44)
[2020-05-10] MEDS ORDERED: ONDANSETRON HCL INJ/PF 4 MG/2 ML SDV IV ONE (07:44)
--- NOTE | 2020-05-10 07:45 | ER Document Report ---
ED Medical Screen (RME) - General Chief Complaint: Abdominal Pain Stated Complaint: BACK AND STOMACH PAIN Time Seen by Provider: 05/10/20 07:35 Primary Care Provider: MARIA DOLORES GARCIA MD [Primary Care Provider] - Follow up as needed Notes: 30-year-old female with chief complaint of sharp epigastric pain with radiation to the back. Reports vomiting. Eating very little over the past couple of days because of this. Denies fever, chest pain. She is 3 weeks . No abdominal surgeries. She is not breast-feeding TRAVEL OUTSIDE OF THE [place] IN LAST 30 DAYS: No - Related Data Allergies/Adverse Reactions: No Known Allergies Allergy (Verified 04/19/20 00:26) Home Medications: stool softener. tylenol 3 Past Medical History - Social History Chew tobacco use (# tins/day): No Frequency of alcohol use: None Drug Abuse: Bath salts Neurological Medical History: Reports: Hx Migraine Renal/ Medical History: Denies: Hx Peritoneal Dialysis Psychiatric Medical History: Denies: Hx Depression - Immunizations Immunizations up to date: Yes Hx Diphtheria, Pertussis, Tetanus Vaccination: Yes Physical Exam - Vital signs Vitals: Temp Pulse Resp BP Pulse Ox 98.0 F 82 16 135/89 H 100 05/10/20 07:08 05/10/20 07:08 05/10/20 07:08 05/10/20 07:08 05/10/20 07:08 - General General appearance: Other - Appears to be in pain - Abdominal Tenderness: Tender - Tender with some guarding in the epigastric and general upper abdomen, lower abdomen benign Course - Re-evaluation Re-evalutation: I have greeted and performed a rapid initial assessment of this patient. A comprehensive ED assessment and evaluation of the patient, analysis of test results and completion of the medical decision making process will be conducted by additional ED providers. - Vital Signs Vital signs: Temp Pulse Resp BP Pulse Ox 98.0 F 82 16 135/89 H 100 05/10/20 07:13 05/10/20 07:08 05/10/20 07:08 05/10/20 07:08 05/10/20 07:08 Doctor's Discharge - Discharge Referrals: MARIA DOLORES GARCIA MD [Primary Care Provider] - Follow up as needed
[2020-05-10] MEDS ORDERED: MAG HYDROX/AL HYDROX/SIMETH SUSP 30 ML UDCUP PO ONE (08:05)
[2020-05-10] MEDS ORDERED: LIDOCAINE 2% VISCOUS SOLN 15 ML UDCUP PO ONE (08:05)
--- NOTE | 2020-05-10 08:42 | ER Document Report ---
Entered by TAMIA QUINTERO SCRIBE 05/10/20 0755 Acting as scribe for:MEAGAN BUNCH MD ED GI/ - General Chief Complaint: Abdominal Pain Stated Complaint: BACK AND STOMACH PAIN Time Seen by Provider: 05/10/20 07:35 Primary Care Provider: MARIA DOLORES GARCIA MD [Primary Care Provider] - Follow up as needed Mode of Arrival: Ambulatory Information source: Patient Notes: This 30 year old female patient who is x3 weeks via vaginal delivery presents to the ED today with complaints of upper abdominal pain that started x2 weeks ago. Patient states that she was prescribed Tylenol #3 for a fourth degree perineal laceration x11 days ago. Denies fever. She is not breast-feeding. TRAVEL OUTSIDE OF THE [place] IN LAST 30 DAYS: No - Related Data Allergies/Adverse Reactions: No Known Allergies Allergy (Verified 04/19/20 00:26) Home Medications: stool softener. tylenol 3 Past Medical History - General Information source: Patient, [facility] - Social History Smoking Status: Never Smoker Cigarette use (# per day): No Chew tobacco use (# tins/day): No Smoking Education Provided: No Frequency of alcohol use: None Drug Abuse: [place] Lives with: Spouse/Significant other Family History: Reviewed & Not Pertinent Patient has suicidal ideation: No Patient has homicidal ideation: No Neurological Medical History: Reports: Hx Migraine - Immunizations Immunizations up to date: Yes Hx Diphtheria, Pertussis, Tetanus Vaccination: Yes Review of Systems - Review of Systems Constitutional: See HPI. denies: Fever EENT: No symptoms reported Cardiovascular: No symptoms reported Respiratory: No symptoms reported Gastrointestinal: See HPI, Abdominal pain Genitourinary: No symptoms reported Female Genitourinary: No symptoms reported Musculoskeletal: No symptoms reported Skin: No symptoms reported Hematologic/Lymphatic: No symptoms reported Neurological/Psychological: No symptoms reported -: Yes All other systems reviewed and negative Physical Exam - Vital signs Vitals: Temp Pulse Resp BP Pulse Ox 98.0 F 82 16 135/89 H 100 05/10/20 07:08 05/10/20 07:08 05/10/20 07:08 05/10/20 07:08 05/10/20 07:08 - General General appearance: Alert In distress: None - HEENT Head: Normocephalic, Atraumatic Eyes: Normal Extraocular movements intact: Yes Pupils: PERRL Neck: Normal, Supple - Respiratory Respiratory status: No respiratory distress Chest status: Nontender Breath sounds: Normal Chest palpation: Normal - Cardiovascular Rhythm: Regular Heart sounds: Normal auscultation Murmur: No - Abdominal Inspection: Normal Distension: No distension Bowel sounds: Normal Tenderness: Tender - RUQ and epigastric tenderness to palpation, Other - Abdomen soft Organomegaly: No organomegaly - Back Back: Normal, Nontender - Extremities General upper extremity: Normal inspection General lower extremity: Normal inspection. No: Edema - Neurological Neuro grossly intact: Yes Orientation: AAOx4 [place] Coma Scale Eye Opening: Spontaneous [place] Coma Scale Verbal: Oriented [place] Coma Scale Motor: Obeys Commands Radha Coma Scale Total: 15 - Psychological Associated symptoms: Normal affect, Normal mood - Skin Skin Temperature: Warm Skin Moisture: Dry Skin Color: Normal Course - Vital Signs Vital signs: Temp Pulse Resp BP Pulse Ox 98.0 F 82 16 135/89 H 100 05/10/20 07:13 05/10/20 07:08 05/10/20 07:08 05/10/20 07:08 05/10/20 07:08 - Laboratory Results Result Diagrams: 05/10/20 08:27 05/10/20 08:27 Laboratory Results Interpreted: 05/10/20 05/10/20 05/10/20 08:27 08:27 08:27 MCH 26.1 L RDW 14.9 H Seg Neutrophils % 80.2 H Anion Gap 4 L Total Bilirubin 1.6 H Direct Bilirubin 0.9 H AST 722 H ALT 576 H Alkaline Phosphatase 280 H Urine Protein 30 H Urine Blood SMALL H Urine Urobilinogen 4.0 H Ur Leukocyte Esterase LARGE H Critical Laboratory Results Reviewed: Yes Attending or Supervising Physician who Reviewed Labs: MEAGAN BUNCH - Elevated liver function tests - Radiology Results Critical Radiology Results Reviewed: Yes Attending or Supervising Physician who Reviewed Radiology: MEAGAN BUNCH - Gallstones, CBD 9 mm without filling defect - Consults dr. Ortiz Time consulted: 09:30 Consulted provider: will come to ER Discharge - Discharge Clinical Impression: Elevated LFTs Cholelithiasis Qualifiers: Cholelithiasis location: gallbladder Cholecystitis presence: without cholecystitis Biliary obstruction: without biliary obstruction Qualified Code(s): K80.20 - Calculus of gallbladder without cholecystitis without obstruction Urinary tract infection Qualifiers: Urinary tract infection type: site unspecified Hematuria presence: without hematuria Qualified Code(s): N39.0 - Urinary tract infection, site not specified Condition: Stable Disposition: ADMITTED INPATIENT Admitting Provider: Surgicalist Unit Admitted: Surgical Floor Referrals: MARIA DOLORES GARCIA MD [Primary Care Provider] - Follow up as needed I personally performed the services described in the documentation, reviewed and edited the documentation which was dictated to the scribe in my presence, and it accurately records my words and actions.
[2020-05-10 08:56] LABS: ABSOLUTE BASOPHILS # (AUTO) 0.1 10^3/uL (0.0-0.2); ABSOLUTE MONOCYTES (AUTO) 0.4 10^3/uL (0.1-1.4); ABSOLUTE NEUT (AUTO) 6.3 10^3/uL (1.7-8.2); BASOPHILS % (AUTO) 0.8 % (0-2); EOSINOPHILS % (AUTO) 0.3 % (0-6); HEMATOCRIT 38.8 % (36.0-47.0); HEMOGLOBIN 12.7 g/dL (12.0-15.5); LYMPHOCYTES % (AUTO) 13.3 % (13-45); MEAN CORPUSCULAR HEMOGLOBIN 26.1 pg (27.0-33.4); MEAN CORPUSCULAR HGB CONC 32.6 g/dL (32.0-36.0); MEAN CORPUSCULAR VOLUME 80 fl (80-97); MONOCYTES % (AUTO) 5.4 % (3-13); RED BLOOD COUNT 4.85 10^6/uL (3.72-5.28); RED CELL DISTRIBUTION WIDTH 14.9 % (11.5-14.0); SEGMENTED NEUTROPHILS % (AUTO) 80.2 % (42-78); TOTAL CELLS COUNTED % (AUTO) 100 %; WHITE BLOOD COUNT 7.8 10^3/uL (4.0-10.5)
[2020-05-10 08:58] LABS: APPEARANCE,URINE CLOUDY; BILIRUBIN,URINE NEGATIVE (NEGATIVE); COLOR,URINE YELLOW; GLUCOSE, URINE NEGATIVE (NEGATIVE); KETONES,URINE NEGATIVE (NEGATIVE); LEUKOCYTE ESTERASE,URINE LARGE (NEGATIVE); NITRITE,URINE NEGATIVE (NEGATIVE); PROTEIN,URINE 30 mg/dL (NEGATIVE); URINE SPECIFIC GRAVITY 1.014
[2020-05-10 09:10] LABS: ALBUMIN 4.2 g/dL (3.5-5.0); ALKALINE PHOSPHATASE 280 U/L (38-126); ASPARTATE AMINO TRANSFERASE 722 U/L (14-36); BILIRUBIN,DIRECT 0.9 mg/dL (0.0-0.4); BILIRUBIN,TOTAL 1.6 mg/dL (0.2-1.3); BLOOD UREA NITROGEN 9 mg/dL (7-20); CARBON DIOXIDE 28 mmol/L (22-30); CHLORIDE 106 mmol/L (98-107); GLUCOSE 107 mg/dL (75-110); POTASSIUM 4.3 mmol/L (3.6-5.0); TOTAL PROTEIN 7.3 g/dL (6.3-8.2)
--- NOTE | 2020-05-10 09:14 | RADIOLOGY REPORT (SQ) ---
EXAM DESCRIPTION: U/S ABDOMEN LIMITED W/O DOP IMAGES COMPLETED DATE/TIME: 05/10/2020 9:03 am REASON FOR STUDY: epigastric pain, vomiting COMPARISON: None. TECHNIQUE: Dynamic and static grayscale images acquired of the abdomen and recorded on PACS. Additio nal selected color Doppler and spectral images recorded. LIMITATIONS: None. FINDINGS: PANCREAS: No masses. Visualized pancreatic duct normal caliber. LIVER: No masses. Echotexture normal. LIVER VASCULATURE: Normal directional flow of the main portal vein and hepatic veins. GALLBLADDER: Gallstone(s). No pericholecystic fluid. No wall thickening. ULTRASOUND-DETECTED BRANNON'S SIGN: Negative. INTRAHEPATIC DUCTS AND COMMON DUCT: The common bile duct is dilated up to 9 mm without demonstrated i ntrinsic filling defect or extrinsic mass impression. INFERIOR VENA CAVA: Normal flow. AORTA: No aneurysm. RIGHT KIDNEY: Normal size. Normal echogenicity. No solid or suspicious masses. No hydronephrosis. No calcifications. PERITONEAL AND RIGHT PLEURAL SPACE: No ascites or effusions. OTHER: No other significant findings. IMPRESSION: Common bile duct dilatation without demonstrated intrinsic filling defect or extrinsic m ass impression. Background of cholelithiasis without evidence of cholecystitis. Consider further ev aluation with MRCP. TECHNICAL DOCUMENTATION: JOB ID: [id number] 2010 [employer]- All Rights Reserved Reading location - IP/workstation name: [email or web address]
[2020-05-10 09:15] LABS: ANION GAP 4 (5-19)
[2020-05-10 09:25] LABS: PLATELET COUNT 251 10^3/uL (150-450)
[2020-05-10] MEDS ORDERED: KETOROLAC TROMETHAMINE 60 MG/2 ML SDV ONE (09:48)
[2020-05-10] MEDS ORDERED: GLYCOPYRROLATE 1 MG/5 ML VIAL ONE (09:48)
[2020-05-10] MEDS ORDERED: NEOSTIGMINE METHYLSULFATE 10 MG/10 ML VIAL ONE (09:48)
[2020-05-10] MEDS ORDERED: LEVOFLOXACIN 750 MG/D5W RTU 750 MG/150 ML RTUPB IV ONE (10:03)
--- NOTE | 2020-05-10 12:45 | PDOC H&P ---
History of Present Illness Admission Date/PCP: 05/10/20 10:38 MARIA DOLORES GARCIA MD Patient complains of: Abdominal pain History of Present Illness: AR JACOBO is a 30 year old female Presents to the emergency department via ground rescue complaining of a 1 week h istory of abdominal pain, postprandial, nausea and vomiting. She is seen in the emergency department where she is found to have right upper quadrant tenderness, gallbladder ultrasound demonstrating gallstones, and a common bile duct of 9 mm. She had mild elevation in her liver function studies with a alk phos of 280 and total bilirubin of 1.6. Patient is 3 weeks , with closure of 4th degree episiotomy. Patient is found to have asymptomatic UTI. Surgery was consulted, she was advised admission, and definitive management including cholecystectomy with intraoperative cholangiography to reduce her risk of recurrent symptoms, gallstone pancreatitis, retained common duct stones and other possible complications due to delayed treatment. Her Covid rapid 19 test was negative. Past Medical History Past Medical History: Migraine headaches Neurological Medical History: Reports: Migraine Psychiatric Medical History: Denies: Depression Past Surgical History Past Surgical History: Reports: None Social History Information Source: Patient Lives with: Spouse/Significant other Smoking Status: Never Smoker Electronic Cigarette use?: No Hx Recreational Drug Use: No Family History Family History: None, Reviewed & Not Pertinent Parental Family History Reviewed: No Children Family History Reviewed: No Sibling(s) Family History Reviewed.: No Medication/Allergy Home Medications: Prenat 115/Iron Fum/Folic/Dss [ 19 Tablet] 1 tab PO DAILY 03/10/20 Docusate Sodium [Colace 100 mg Capsule] 100 mg PO BID #60 capsule 04/21/20 Glycerin/Witch Ammy Laura [Tucks Take-Alongs Wipe] 1 each TP PRN PRN #30 med..pad 04/21/20 Vit/Dha [ Multi + Dha Capsule] 1 cap PO DAILY capsule 04/21/20 Sennosides/Docusate 8.6-50 mg [Senna Plus Tablet] 1 each PO DAILY #30 tablet 04/21/20 Naproxen [Naprosyn 250 mg Tablet] 500 mg PO BIDBS PRN 5 Days #10 tablet 04/22/20 Allergies/Adverse Reactions: No Known Allergies Allergy (Verified 04/19/20 00:26) Review of Systems Constitutional: PRESENT: as per HPI Eyes: ABSENT: visual disturbances Ears: ABSENT: hearing changes Cardiovascular: ABSENT: chest pain, dyspnea on exertion, edema, orthropnea, palpitations Respiratory: ABSENT: cough, hemoptysis Genitourinary: PRESENT: as per HPI Musculoskeletal: ABSENT: joint swelling Integumentary: PRESENT: other - As per HPI Neurological: ABSENT: abnormal gait, abnormal speech, confusion, dizziness, focal weakness, syncope Physical Exam Vital Signs: Temp Pulse Resp BP Pulse Ox 98.0 F 82 16 135/89 H 100 05/10/20 07:13 05/10/20 07:08 05/10/20 07:08 05/10/20 07:08 05/10/20 07:08 Intake & Output 05/09/20 05/10/20 05/11/20 06:59 06:59 06:59 Intake Total 1000 Balance 1000 Weight 98.1 kg General appearance: PRESENT: no acute distress Head exam: PRESENT: normocephalic Eye exam: PRESENT: EOMI Mouth exam: PRESENT: dry mucosa Neck exam: PRESENT: full ROM Respiratory exam: PRESENT: clear to auscultation [place] Cardiovascular exam: PRESENT: RRR Pulses: PRESENT: normal carotid pulses, normal radial pulses, normal femoral pulses GI/Abdominal exam: PRESENT: other - Small umbilical hernia; moderately tender right upper quadrant with guarding. Rectal exam: PRESENT: deferred Musculoskeletal exam: PRESENT: full ROM Neurological exam: PRESENT: oriented to person, oriented to place, oriented to time, oriented to situation Focused psych exam: PRESENT: other - Appropriate neurologic exam and focus psych exam Skin exam: PRESENT: dry Results Laboratory Results: 05/10/20 08:27 05/10/20 08:27 05/10/20 05/10/20 05/10/20 08:27 08:27 08:27 WBC 7.8 RBC 4.85 Hgb 12.7 Hct 38.8 MCV 80 MCH 26.1 L MCHC 32.6 RDW 14.9 H Plt Count 251 Seg Neutrophils % 80.2 H Sodium 138.1 Potassium 4.3 Chloride 106 Carbon Dioxide 28 Anion Gap 4 L BUN 9 Creatinine 0.52 Est GFR ( Amer) > 60 Glucose 107 Calcium 9.0 Total Bilirubin 1.6 H AST 722 H Alkaline Phosphatase 280 H Total Protein 7.3 Albumin 4.2 Lipase 243.7 Urine Color YELLOW Urine Appearance CLOUDY Urine pH 7.0 Ur Specific [place] 1.014 Urine Protein 30 H Urine Glucose (UA) NEGATIVE Urine Ketones NEGATIVE Urine Blood SMALL H Urine Nitrite NEGATIVE Ur Leukocyte Esterase LARGE H Urine WBC (Auto) 140 Urine RBC (Auto) 10 Impressions: Abdomen Ultrasound 05/10/20 07:43 IMPRESSION: Common bile duct dilatation without demonstrated intrinsic filling defect or extrinsic mass impression. Background of cholelithiasis without evidence of cholecystitis. Consider further evaluation with MRCP. Assessment & Plan - Diagnosis (1) Cholelithiasis Qualifiers: Cholelithiasis location: gallbladder Cholecystitis presence: without cholecystitis Biliary obstruction: without biliary obstruction Qualified Code(s): K80.20 - Calculus of gallbladder without cholecystitis without obstruction Is this a current diagnosis for this admission?: Yes Plan: Impression: Symptomatic cholelithiasis, cholecystitis, with mild elevation LFTs, and common bile duct measuring 9 mm on ultrasonography; currently minimally symptomatic. Suspect patient may have passed a common bile duct stone. Recommendations: 1. Will admit patient, keep n.p.o., IV fluids, intravenous antibiotics, and set her up for laparoscopic, possible open cholecystectomy with intraoperative cholangiography to rule out common bile duct stone. The rationale for performing this procedure has been explained to the patient, with the timing recommended now while we have access to operating room resources during this Covid super surge. 2. I explained the mechanics of the operation, as well as risk benefits and alternatives including bleeding, infection, bile duct injury, retained common duct stone, need for additional surgery, or other procedures including ERCP. Diagram drawn on board. Patient expresses understanding and agrees to proceed. (2) Elevated LFTs Is this a current diagnosis for this admission?: Yes (3) Urinary tract infection Qualifiers: Urinary tract infection type: site unspecified Hematuria presence: without hematuria Qualified Code(s): N39.0 - Urinary tract infection, site not specified Is this a current diagnosis for this admission?: Yes (4) Constipation due to opioid therapy Is this a current diagnosis for this admission?: Yes (5) Fourth degree perineal laceration during delivery Is this a current diagnosis for this admission?: Yes - Time Time Spent: 50 to 70 Minutes Critical Time spent with patient: 15-24 minutes Medications reviewed and adjusted accordingly: Yes Anticipated Discharge Disposition: Home, Self Care Anticipated Discharge Timeframe: within 48 hours - Inpatient Certification Based on my medical assessment, after consideration of the patient's co morbidities, presenting symptoms, or acuity I expect that the services needed warrant INPATIENT care.: Yes I certify that my determination is in accordance with my understanding of Medicare's requirements for reasonable and necessary INPATIENT services [42 CFR 412.3e].: Yes Medical Necessity: Need for Pain Control, Need for IV Antibiotics, Need for Surgery
[2020-05-10] MEDS ORDERED: FENTANYL CITRATE INJ/PF 100 MCG/2 ML AMPUL ONE (13:58)
[2020-05-10] MEDS ORDERED: DEXAMETHASONE SOD PHOSPHATE INJ 4 MG/1 ML VIAL ONE (13:58)
[2020-05-10] MEDS ORDERED: LIDOCAINE 2% INJ-PF (20 MG/ML) 10 ML AMPUL ONE (13:58)
[2020-05-10] MEDS ORDERED: HYDROMORPHONE HCL INJ/PF 2 MG/ML AMPULE ONE (13:58)
[2020-05-10] MEDS ORDERED: MIDAZOLAM 2 MG/2 ML INJ ONE (13:58)
[2020-05-10] MEDS ORDERED: ONDANSETRON HCL INJ/PF 4 MG/2 ML SDV ONE (13:58)
[2020-05-10] MEDS ORDERED: PROPOFOL INJ 200 MG/20 ML VIAL IV ONE (13:58)
[2020-05-10] MEDS ORDERED: BUPIVACAINE HCL 0.25 % INJ/PF (2.5 MG/1 ML) 30 ML VIAL ONE (15:33)
[2020-05-10] MEDS ORDERED: CEFAZOLIN INJ 1 GM VIAL ONE (16:16)
[2020-05-10] MEDS ORDERED: MORPHINE SULFATE 10 MG/ML INJ IV PRN (16:36)
[2020-05-10] MEDS ORDERED: PROMETHAZINE HCL INJ 25 MG/1 ML VIAL IV PRN ×2 (16:36)
[2020-05-10] MEDS ORDERED: ONDANSETRON HCL INJ/PF 4 MG/2 ML SDV IV PRN (16:36)
[2020-05-10] MEDS ORDERED: OXYCODONE-ACETAMINOPHEN 5-325 MG TABLET PO PRN ×2 (16:36)
[2020-05-10] MEDS ORDERED: FENTANYL CITRATE INJ/PF 100 MCG/2 ML AMPUL IV PRN ×3 (16:36)
[2020-05-10] MEDS ORDERED: DIPHENHYDRAMINE HCL 50 MG/ML VIAL IV PRN (16:36)
[2020-05-10] MEDS ORDERED: ACETAMINOPHEN 1,000 MG/100 ML RTUPB IV ONE (17:42)
[2020-05-10] MEDS: MEPERIDINE HCL/PF INJ 25 MG/1 ML DISP.SYRIN ONE ×2 (17:45→17:55)
[2020-05-10] MEDS ORDERED: KETOROLAC TROMETHAMINE INJ/PF 30 MG/1 ML SDV IV PRN (17:48)
--- NOTE | 2020-05-10 17:48 | Operative Report ---
Operative Report DATE OF SURGERY: 05/10/20 PREOPERATIVE DIAGNOSIS: 1. Acute cholecystitis cholelithiasis. 2. Elevated l iver function studies. 3. POSTOPERATIVE DIAGNOSIS: Same with retaining distal common bile duct stones OPERATION: 1. Laparoscopic cholecystectomy. 2. Intraoperative cholangiography. 3. Interpretation of intraoperative cholangiography SURGEON: CORBY MARQUES ANESTHESIA: GA TISSUE REMOVED OR ALTERED: 1 gallbladder with contents COMPLICATIONS: None ESTIMATED BLOOD LOSS: Minimal INTRAOPERATIVE FINDINGS: See below PROCEDURE: The patient was taken from the preop holding aream to the main operating room where patient underwent uneventful general anesthesia via endotracheal intubation. The arms were abducted, and the abdomen was prepped and draped sterile fashion with Betadine Surgical plan and surgical timeout were conducted Markings were made in the skin for for port laparoscopy. All 4 sites were anesthetized with quarter percent Marcaine. Stab was made in the right upper quadrant, Veress needle inserted the peritoneal cavity pneumoperitoneum was established. Veress needle was removed, 5 mm port inserted and a 5 mm viewing scope was inserted. Visualization the peritoneal cavity revealed no evidence of vascular or visceral injury. 3 additional ports were placed in the subxiphoid and right upper quadrant. Graspers were placed on the gallbladder, fundus and infundibulum, and exposure to the neck of the gallbladder was achieved. There were minimal adhesions between the gallbladder neck and the deeper structures. The gallbladder was acutely inflamed, edematous with moderate greenish discoloration. The neck of the gallbladder junction with the cystic duct was dissected out. The cystic artery and lymph node of [place] were surrounded with a right angle clamp, clipped twice proximally once distally and divided with scissors. The cystic duct was now cleared on both right and left sides, with the triangle of [place] opened widely. The critical view was obtained. The cystic duct was clipped once distally, opened with scissors and a moderate amount of fine gravel and sludge removed. We now brought onto the field through a separate stab wound a disposable cholangiogram catheter which was threaded through the anterior ab dominal wall.. The opening in the cystic duct was flushed with saline, and loose sedimentary stones from the proximal cystic duct evacuated. We then inserted the cholangiocatheter into the cystic duct stump and secured into place with a clip All laparoscopic instruments were removed and we shot a series of cholangiograms with full-strength contrast with the patient in the supine position. These images demonstrated complete of opacification of the biliary tree including the right and left hepatic branches, the common hepatic duct, the common bile duct all the way down ampulla. There was no egress of contrast into the duodenum. The findings are consistent with common bile duct obstruction due to distal common bile duct stone. There was no evidence of contrast extravasation. This was considered an abnormal cholangiogram. We returned to the patient laparoscopically, removed the retained clip, and cholangiogram catheter. The cystic duct was clipped twice proximally then divided with scissors. The gallbladder was removed from the liver bed using hook cautery dissection, then brought out of the patient's abdomen through the supraumbilical port site hole. We checked the peritoneal cavity for bleeding there was none. Cystic duct and cystic artery stumps with clips visualized, found to be intact and conclusion photos taken. The patient was leveled out. We checked for bleeding and there was none. All fluid evacuated from the peritoneal cavity, ports removed, pneumoperitoneum evacuated, wounds closed with 0 Vicryl, 3-0 Vicryl, benzoin and Steri-Strips. Plan: 1. We will provide clear liquids to patient 2. I spoke with patient's about the intraoperative findings. We will need to make arrangements for ERCP either at [facility] or elsewhere.
[2020-05-10] MEDS ORDERED: ACETAMINOPHEN INJ/PF 1000 MG/100 ML SDV IV SCH ×2 (18:00)
[2020-05-10] MEDS: LABETALOL HCL INJ 20 MG/4 ML DISP.SYRIN IV ONE ×3 (18:05→18:25)
[2020-05-10] MEDS ORDERED: LABETALOL HCL INJ 20 MG/4 ML DISP.SYRIN IV PRN (18:27)
[2020-05-10] MEDS: ACETAMINOPHEN 1,000 MG/100 ML RTUPB IV SCH (18:41)
--- NOTE | 2020-05-10 20:13 | RADIOLOGY REPORT (SQ) ---
EXAM DESCRIPTION: CHOLANGIOGRAM OPERATIVE; NO CHG FLUORO IMAGES COMPLETED DATE/TIME: 05/10/2020 5:18 pm REASON FOR STUDY: IOC COMPARISON: Abdominal ultrasound 05/10/2020 FLUOROSCOPY TIME: 0.6 minutes 4 digital fluoroscopic images images saved to PACS. TECHNIQUE: Cinegraphic images were obtained from an intraoperative cholangiogram. LIMITATIONS: None. FINDINGS: Contrast injected into the cystic duct stump. Normal filling of the right and left intrah epatic ducts and common hepatic duct. Small filling defect in the distal common duct. There is no filling of the duodenum. Suspect an imp acted distal common duct stone. Findings discussed with operating surgeon IMPRESSION: Distal common duct stone, no filling of the duodenum. COMMENT: Quality ID 145: Final reports for procedures using fluoroscopy that document radiation exp osure indices, or exposure time and number of fluorographic images (if radiation exposure indices are not available) TECHNICAL DOCUMENTATION: JOB ID: [id number] 2010 [employer]- All Rights Reserved Reading location - IP/workstation name: [email or web address]
--- NOTE | 2020-05-10 20:13 | RADIOLOGY REPORT (SQ) ---
EXAM DESCRIPTION: CHOLANGIOGRAM OPERATIVE; NO CHG FLUORO IMAGES COMPLETED DATE/TIME: 05/10/2020 5:18 pm REASON FOR STUDY: IOC COMPARISON: Abdominal ultrasound 05/10/2020 FLUOROSCOPY TIME: 0.6 minutes 4 digital fluoroscopic images images saved to PACS. TECHNIQUE: Cinegraphic images were obtained from an intraoperative cholangiogram. LIMITATIONS: None. FINDINGS: Contrast injected into the cystic duct stump. Normal filling of the right and left intrah epatic ducts and common hepatic duct. Small filling defect in the distal common duct. There is no filling of the duodenum. Suspect an imp acted distal common duct stone. Findings discussed with operating surgeon IMPRESSION: Distal common duct stone, no filling of the duodenum. COMMENT: Quality ID 145: Final reports for procedures using fluoroscopy that document radiation exp osure indices, or exposure time and number of fluorographic images (if radiation exposure indices are not available) TECHNICAL DOCUMENTATION: JOB ID: [id number] 2010 [employer]- All Rights Reserved Reading location - IP/workstation name: [email or web address]
[2020-05-10] MEDS: CIPROFLOXACIN 400 MG/D5W RTU 400 MG/200 ML RTUPB IV SCH (22:13)
[2020-05-11] MEDS: ACETAMINOPHEN 1,000 MG/100 ML RTUPB IV SCH ×2 (00:33→06:33)
[2020-05-11] MEDS: ONDANSETRON HCL INJ/PF 4 MG/2 ML SDV IV SCH ×2 (00:38→06:40)
[2020-05-11 07:44] LABS: ALBUMIN 3.5 g/dL (3.5-5.0); ALKALINE PHOSPHATASE 220 U/L (38-126); ASPARTATE AMINO TRANSFERASE 269 U/L (14-36); BILIRUBIN,DIRECT 0.2 mg/dL (0.0-0.4); BILIRUBIN,TOTAL 0.7 mg/dL (0.2-1.3); TOTAL PROTEIN 6.2 g/dL (6.3-8.2)
--- NOTE | 2020-05-11 08:53 | PDOC DISCHARGE SUMMARY ---
General - Admit/Disc Date/PCP Admission Date/Primary Care Provider: 05/10/20 10:38 MARIA DOLORES GARCIA MD Discharge Date: 05/11/20 - Discharge Diagnosis Final Diagnosis: choledocolithiasis - Assessment Summary: 30-year-old female admitted with acute cholecystitis and a dilated common bile duct. The patient was found to have a completely occluded distal common bile duct stone. Unfortunately, transfer could not be arranged. She underwent cholecystectomy with intraoperative cholangiogram, confirming the occluding distal common bile duct stone by Dr. Ortiz. The patient tolerated the procedure well. Dr. Ortiz then arranged for outpatient transfer to [facility] for ERCP. I have discussed this with CHAPITO Vu at [facility]. They have agreed to see the patient in their office today, and arrange for ERCP in the near future. I have discussed this possibility with the patient. I have offered her this option versus inpatient transfer to a different facility for ERCP. She has declined inpatient transfer. She wishes to travel by personal vehicle to [place]. I have impressed upon her the severity of her condition, and the need for urgent ERCP. The patient has expressed understanding. I will discharge the patient, with the understanding that she must travel to [place] to see [facility] today. The patient has expressed understanding. - Additional Information Resuscitation Status: Full Code Discharge Diet: Other (Comments) - NPO Discharge Activity: Balance Activity w/Rest Referrals: MARIA DOLORES GARCIA MD [Primary Care Provider] - Follow up as needed Prescriptions: Hydrocodone/Acetaminophen [[place] 5-325 mg Tablet] 1 tab PO Q6HP PRN #14 tablet PRN Reason: For Pain Home Medications: Vit/Dha [ Multi + Dha Capsule] 1 cap PO DAILY capsule 04/21/20 Docusate Sodium [Colace 100 mg Capsule] 100 mg PO BIDP PRN 05/11/20 Hydrocodone/Acetaminophen [[place] 5-325 mg Tablet] 1 tab PO Q6HP PRN #14 tablet 05/11/20 Additional Information: no lifting >10 lbs x 2 weeks. OK to shower starting tomorrow, 05/12/20 History of Present Illiness History of Present Illness: AR JACOBO is a 30 year old female Physical Exam Vital Signs: Temp Pulse Resp BP Pulse Ox 98.3 F 67 16 123/59 L 99 05/11/20 07:43 05/11/20 07:43 05/11/20 07:43 05/11/20 07:43 05/11/20 07:43 Intake & Output 05/10/20 05/11/20 05/12/20 06:59 06:59 06:59 Intake Total 2750 Output Total 10 Balance 2740 Weight 97.8 kg Results Laboratory Results: WBC 7.8 10^3/uL (4.0-10.5) 05/10/20 08:27 RBC 4.85 10^6/uL (3.72-5.28) 05/10/20 08:27 Hgb 12.7 g/dL (12.0-15.5) 05/10/20 08:27 Hct 38.8 % (36.0-47.0) 05/10/20 08:27 MCV 80 fl (80-97) 05/10/20 08:27 MCH 26.1 pg (27.0-33.4) L 05/10/20 08:27 MCHC 32.6 g/dL (32.0-36.0) 05/10/20 08:27 RDW 14.9 % (11.5-14.0) H 05/10/20 08:27 Plt Count 251 10^3/uL (150-450) 05/10/20 08:27 Lymph % (Auto) 13.3 % (13-45) 05/10/20 08:27 [place] % (Auto) 5.4 % (3-13) 05/10/20 08:27 Eos % (Auto) 0.3 % (0-6) 05/10/20 08:27 Baso % (Auto) 0.8 % (0-2) 05/10/20 08:27 Absolute Neuts (auto) 6.3 10^3/uL (1.7-8.2) 05/10/20 08:27 Absolute Lymphs (auto) 1.0 10^3/uL (0.5-4.7) 05/10/20 08:27 Absolute Monos (auto) 0.4 10^3/uL (0.1-1.4) 05/10/20 08:27 Absolute Eos (auto) 0.0 10^3/uL (0.0-0.6) 05/10/20 08:27 Absolute Basos (auto) 0.1 10^3/uL (0.0-0.2) 05/10/20 08:27 Seg Neutrophils % 80.2 % (42-78) H 05/10/20 08:27 Sodium 138.1 mmol/L (137-145) 05/10/20 08:27 Potassium 4.3 mmol/L (3.6-5.0) 05/10/20 08:27 Chloride 106 mmol/L (98-107) 05/10/20 08:27 Carbon Dioxide 28 mmol/L (22-30) 05/10/20 08:27 Anion Gap 4 (5-19) L 05/10/20 08:27 BUN 9 mg/dL (7-20) 05/10/20 08:27 Creatinine 0.52 mg/dL (0.52-1.25) 05/10/20 08:27 Est GFR ( Amer) > 60 (>60) 05/10/20 08:27 Est GFR (MDRD) Non-Af > 60 (>60) 05/10/20 08:27 Glucose 107 mg/dL (75-110) 05/10/20 08:27 Calcium 9.0 mg/dL (8.4-10.2) 05/10/20 08:27 Total Bilirubin 0.7 mg/dL (0.2-1.3) 05/11/20 06:54 Direct Bilirubin 0.2 mg/dL (0.0-0.4) 05/11/20 06:54 Neonat Total Bilirubin Not Reportable 05/11/20 06:54 Neonat Direct Bilirubin Not Reportable 05/11/20 06:54 Neonat Indirect Bili Not Reportable 05/11/20 06:54 AST 269 U/L (14-36) H 05/11/20 06:54 ALT 441 U/L (<35) H 05/11/20 06:54 Alkaline Phosphatase 220 U/L (38-126) H 05/11/20 06:54 Total Protein 6.2 g/dL (6.3-8.2) L 05/11/20 06:54 Albumin 3.5 g/dL (3.5-5.0) 05/11/20 06:54 Lipase 243.7 U/L (23-300) 05/10/20 08:27 Urine Color YELLOW 05/10/20 08:27 Urine Appearance CLOUDY 05/10/20 08:27 Urine pH 7.0 (5.0-9.0) 05/10/20 08:27 Ur Specific [place] 1.014 05/10/20 08:27 Urine Protein 30 mg/dL (NEGATIVE) H 05/10/20 08:27 Urine Glucose (UA) NEGATIVE mg/dL (NEGATIVE) 05/10/20 08:27 Urine Ketones NEGATIVE mg/dL (NEGATIVE) 05/10/20 08:27 Urine Blood SMALL (NEGATIVE) H 05/10/20 08:27 Urine Nitrite NEGATIVE (NEGATIVE) 05/10/20 08:27 Urine Bilirubin NEGATIVE (NEGATIVE) 05/10/20 08:27 Urine Urobilinogen 4.0 mg/dL (<2.0) H 05/10/20 08:27 Ur Leukocyte Esterase LARGE (NEGATIVE) H 05/10/20 08:27 Urine WBC (Auto) 140 /HPF 05/10/20 08:27 Urine RBC (Auto) 10 /HPF 05/10/20 08:27 Urine Bacteria (Auto) TRACE /HPF 05/10/20 08:27 Squamous Epi Cells Auto 14 /HPF 05/10/20 08:27 Urine Mucus (Auto) RARE /LPF 05/10/20 08:27 Urine Ascorbic Acid NEGATIVE (NEGATIVE) 05/10/20 08:27 Influenza A (RT-PCR) NEGATIVE (NEGATIVE) 05/10/20 10:21 Influenza B (RT-PCR) NEGATIVE (NEGATIVE) 05/10/20 10:21 RSV (RT-PCR) NEGATIVE (NEGATIVE) 05/10/20 10:21 SARS-CoV-2 Rap RNA(RT-PCR) NEGATIVE (NEGATIVE) 05/10/20 10:21 Impressions: Cholangiogram 05/10/20 00:00 IMPRESSION: Distal common duct stone, no filling of the duodenum. Fluoroscopy 05/10/20 00:00 IMPRESSION: Distal common duct stone, no filling of the duodenum. Abdomen Ultrasound 05/10/20 07:43 IMPRESSION: Common bile duct dilatation without demonstrated intrinsic filling defect or extrinsic mass impression. Background of cholelithiasis without evidence of cholecystitis. Consider further evaluation with MRCP.
[2020-05-11 09:49] VITALS: BP 109/65
[2020-05-11] MEDS: CIPROFLOXACIN 400 MG/D5W RTU 400 MG/200 ML RTUPB IV SCH (10:03)
== END 2020-05-11 10:23 | disposition home or self-care (01) ==
LOC: ER 07:01 → INTOOBSV 10:38 → EH 10:38 → 2S 12:40
PROVIDERS: ADMIT Surgery; ATTEND Surgery
DX: O99.63 Diseases of the digestive system complicating the puerperium (principal); K80.65 Calculus of gallbladder and bile duct with chronic cholecystitis with obstruction; O86.20 Urinary tract infection following delivery, unspecified; K42.9 Umbilical hernia without obstruction or gangrene; R74.8 Abnormal levels of other serum enzymes; K59.03 Drug induced constipation; T40.605A Adverse effect of unspecified narcotics, initial encounter; O70.3 Fourth degree perineal laceration during delivery; O94 Sequelae of complication of pregnancy, childbirth, and the puerperium; Z01.812 Encounter for preprocedural laboratory examination; Z20.822 Contact with and (suspected) exposure to COVID-19; Z79.899 Other long term (current) drug therapy
CPT/HCPCS: 99285; 96361; 96375; 96365; 36415 ×2; 87086; 83690; 85025; 0241U; 80076; 80053; 81001; 88304 ×2; 74300; 76705; 99140; 00790; 47563; G0378 ×2; Q9967; J2250; J0690; J1100; J1885 ×2; J3010; J3490 ×4; J2175; J2270; J2710; J1170; J2405 ×2; J7030; J2704; J0744; J1956; J0131 ×2; C9803; 790